=== PATIENT | female | born 1935 | race Caucasian/White ===

== ENCOUNTER 2020-08-25 18:23 | Emergency (ER) | payer MEDICARE, OTHER, MEDICAID, SELFPAY ==
[2020-08-25 18:24] VITALS: BP 157/87; PULSE 79; RESP 18; TEMP 36.7; O2SAT 96; BMI 26.1; BMI 26.6
--- NOTE | 2020-08-25 18:25 | CT_ITS ---
PROCEDURE: CT HEAD/BRAIN WO CON CLINICAL INDICATION: fall Head injury with headache/pain, contusion, abrasion or hematoma COMPARISON: No exams were available for comparison TECHNIQUE: Axial images obtained. All CT scans at the facility use one or more dose reduction, viz: automated exposure control, ma/kV adjustment per patient size (including targeted exams where dose is matched to indication, i.e. head), or iterative reconstruction technique. FINDINGS: There is generalized atrophy with hypodensity in the periventricular consistent with periventricular ischemic gliotic changes. A 2.3 x 1.8 cm hyperattenuating mass is present within the posterior aspect of the left corpus callosum/medial parietal occipital region which appears to be and intra axial mass causing mild mass effect on the posterior left lateral ventricle. No intracranial hemorrhage. No midline shift. There is a displaced nasal bone fracture and soft tissue swelling in the left frontal region. IMPRESSION: 1. No acute intracranial hemorrhage. 2. 2.3 x 1.8 cm hyperattenuating mass within the posterior left/splenium of the corpus callosum. Suggest MRI without and with contrast for further evaluation. Differential diagnosis includes primary neoplasm of the brain, metastatic disease, or lymphoma. 3. Left frontal scalp contusion. 4. Displaced nasal bone fracture Dictated by: Guru Thomas MD 08/26/2020 07:04 Guru Thomas MD in [facility] 08/26/2020 07:04
--- NOTE | 2020-08-25 18:25 | CT_ITS ---
PROCEDURE: CT CERVICAL SPINE WO CON CLINICAL INDICATION: fall Neck injury with pain, contusion/abrasion or hematoma, cervical sprain/strain the COMPARISON: No exams were available for comparison TECHNIQUE: Axial images obtained with sagittal and coronal reformats. All CT scans at the facility use one or more dose reduction, viz: automated exposure control, ma/kV adjustment per patient size (including targeted exams where dose is matched to indication, i.e. head), or iterative reconstruction technique. Axial spiral CT scanning performed of the cervical spine beginning at the base of the skull and continuing to the upper T-spine. 3-D multiplanar reconstruction with 3-D manipulation of volumetric data set in image rendering was completed by the radiologist and/or technologist with the supervision of the radiologist on independent workstation. FINDINGS: Normal alignment. No acute fracture or dislocation. Multilevel cervical spondylosis. C2-C3: Degenerative disc disease. C3-C4: Degenerative disc disease with bilateral foraminal narrowing from facet hypertrophic change. C4-C5: Degenerative disc disease. 3 mm anterolisthesis of C4. Bilateral foraminal narrowing. Canal stenosis at 10 mm. C5-C6: Degenerative disc disease with endplate hypertrophic changes. There is canal stenosis at 10 mm with bilateral foraminal narrowing right greater than left. C6-C7: Degenerate disc disease with right-sided foraminal narrowing. C7-T1: Degenerative disc disease with 3 mm anterolisthesis of C7. Please see facial CT and head CT for additional findings. IMPRESSION: 1. No acute fracture. 2. Multilevel cervical spondylosis with canal stenosis and foraminal narrowing. Please see above for detailed description at each level. 3. Additional findings noted in the face and brain including nasal bone fracture and hyperdense nodule within the left aspect of the corpus callosum described on the CT facial and brain report. Dictated by: Guru Thomas MD 08/26/2020 07:14 Guru Thomas MD in [facility] 08/26/2020 07:14
--- NOTE | 2020-08-25 18:25 | CT_ITS ---
PROCEDURE: CT FACIAL BONES WO CON CLINICAL HISTORY: fall Posttraumatic pain COMPARISON: No exams were available for comparison TECHNIQUE: Axial images obtained with sagittal and coronal reformats. All CT scans at the facility use one or more dose reduction, viz: automated exposure control, ma/kV adjustment per patient size (including targeted exams where dose is matched to indication, i.e. head), or iterative reconstruction technique. FINDINGS: There is soft tissue swelling in the left frontal region. There is an impacted comminuted nasal bone fracture with rightward angulation the anterior fracture fragments. Nasal septal fracture is also noted having a crinkled appearance. No obvious orbital fracture. There is an air-fluid level in the maxillary sinuses on both sides.. Air-fluid level is also present in the sphenoid sinus. Soft tissue swelling is present in the nasal region. Degenerative changes are present in the TMJs. IMPRESSION: 1. Comminuted displaced and mildly impacted nasal bone fracture with soft tissue swelling. 2. Comminuted nasal septal fracture. There is 4 mm lateral displacement of the anterior fracture fragment. 3. Air-fluid levels within the paranasal sinuses which may be posttraumatic or infectious 4. Left frontal scalp hematoma Dictated by: Guru Thomas MD 08/26/2020 07:11 Guru Thomas MD in [facility] 08/26/2020 07:11
[2020-08-25 18:28] VITALS: BP 170/74; PULSE 76; RESP 12; O2SAT 97
--- NOTE | 2020-08-25 18:29 | [facility].EDGENADL ---
ED Disposition Clinical Impression: Nasal bone fracture Qualifiers: Encounter type: initial encounter Fracture type: closed Qualified Code(s): S02.2XXA - Fracture of nasal bones, initial encounter for closed fracture Disposition: Home, Self-Care Condition on Discharge: Good Instructions: How to Prevent Falls Additional Instructions: Use ice to nasal bridge and avoid nose blowing over the next 6 to 10 days prior to following up with ENT surgery for further treatment of nasal bone fracture. Return if any difficulty following up with ENT or new symptoms. Referrals: Anshu Medellin [Primary Care Provider] - Kei Betancourt MD [Staff Physician] - 7-14 days (6-10 days for nasal bone fracture) - Critical Care Critical Care Time: No Attestation: On , the high probability of a clinically significant, sudden or life threatening deterioration of the following system(s) required my full and direct attention, intervention and personal management. The time I documented below is in addition to time spent performing reported procedures but includes the following listed in this critical care notation. Medical Decision Making - Medical Records Medical records reviewed: Yes: I reviewed the patient's medical records. - Jeff Inquiry Pt receiving controlled substance: No Vital Signs: 08/25/20 18:24 08/25/20 18:28 08/25/20 20:50 Temperature 98.1 F 98.1 F Temperature Source Oral Pulse Rate 76 74 Pulse Rate [Right Radial] 79 Respiratory Rate 18 12 18 Blood Pressure 170/74 H 162/76 H Blood Pressure [Right Arm] 157/87 H Blood Pressure Mean [Right Arm] 110 Blood Pressure Source [Right Arm] Automatic Cuff Blood Pressure Position Supine Blood Pressure Position [Right Arm] Supine 02 Sat by Pulse Oximetry 96 97 Oxygen Delivery Method Room Air Room Air - Lab Data Lab Results 08/25/20 19:20: WBC 9.6, RBC 5.10, Hgb 12.5, Hct 39.1, MCV 76.6 L, MCH 24.5 L, MCHC 32.0, RDW 16.3, Plt Count 151, MPV 8.2, Neut % (Auto) 84.4 H, Lymph % (Auto) 9.3 L, [place] % (Auto) 4.0, Eos % (Auto) 1.9, Baso % (Auto) 0.3, Neut # (Auto) 8.1 H, Lymph # (Auto) 0.9, [place] # (Auto) 0.4, Eos # (Auto) 0.2, Baso # (Auto) 0.0 08/25/20 19:20: Sodium 142, Potassium 4.2, Chloride 104, Carbon Dioxide 30, Anion Gap 12.2, BUN 27 H, Creatinine 1.20 H, Estimated Creat Clear 38, Estimated GFR 43 L, Est GFR ( Amer) 52 L, Glucose 173 H, Calcium 10.2, Total Bilirubin 0.5, AST 32, ALT 18, Alkaline Phosphatase 107, Troponin I 0.02, Total Protein 7.2, Albumin 4.5, Globulin 2.7, Albumin/Globulin Ratio 1.7 Result diagrams: 08/25/20 19:20 08/25/20 19:20 Orders (Tests/Meds): ED MEDICATIONS Discontinued Medications Generic Name Dose Route Start Last Admin Trade Name Freq PRN Reason Stop Dose Admin Sodium Chloride 1,000 mls @ 999 mls/hr 08/25/20 19:30 08/25/20 19:30 Sod Chlor 0.9% 1000ml Bag IV 08/25/20 20:30 999 mls/hr .Q1H1M TIM Administration Medical Decision Narrative: Patient presents after unwitnessed fall. Unclear whether the fall was mechanical versus syncopal in nature. CT imaging of head, neck, and face will be obtained to ensure no facial bone fracture, cervical spine fracture or subluxation, acute ICH/skull fracture. Basic labs will also be obtained to ensure no anemia or metabolic disturbance as well as a cardiac work-up including EKG and cardiac enzyme testing. Labs nonactionable. CTs demonstrate appears to be a nasal bone fracture. No septal hematoma or difficulty breathing noted. Bleeding has stopped. She has a left scalp hematoma without other acute intracranial abnormalities or cervical spine fracture or subluxation. She does have what could be a mass/neoplasm left corpus callosum requiring follow-up imaging in the outpatient setting. I do not believe is secondary to patient's complaints today. She does need to follow-up with ENT in 6 to 10 days and avoid nose blowing in that time. I did share this plan with patient a
--- NOTE | 2020-08-25 18:54 | XR_ITS ---
PROCEDURE: XR CHEST PORTABLE CLINICAL HISTORY: fall Posttraumatic COMPARISON: No exams were available for comparison FINDINGS: The cardiomediastinal silhouette and pulmonary vascularity are within normal limits. The lungs are clear without infiltrates, suspicious nodules, or pleural effusions. Degenerative changes of the shoulders. Mild thoracic curvature convex right. IMPRESSION: No acute findings. Dictated by: Guru Thomas MD 08/25/2020 19:18 Guru Thomas MD in [place] 08/25/2020 19:18
[2020-08-25 19:33] LABS: Basophils % 0.3 % (0.1-2.0); Eosinophils # 0.2 K/mm3 (0.0-0.4); Eosinophils % 1.9 % (0.1-12.0); Hematocrit 39.1 % (37.0-47.0); Hemoglobin 12.5 g/dL (12.2-16.2); Lymphocytes # 0.9 K/mm3 (0.7-4.5); Lymphocytes % 9.3 % (10-50); Mean Corpuscular Hemoglobin 24.5 pg (27.0-31.2); Mean Corpuscular Volume 76.6 fl (81-99); Mean Platelet Volume 8.2 fl (7.4-10.4); Monocytes # 0.4 K/mm3 (0.1-1.0); Neutrophils # 8.1 K/mm3 (1.8-7.8); Neutrophils % 84.4 % (37.0-80.0); Platelet Count 151 K/mm3 (142-424); Red Cell Distribution Width 16.3 % (11.5-17.5); White Blood Count 9.6 K/mm3 (4.8-10.8)
[2020-08-25 19:39] LABS: Chloride 104 mmol/L (98-107); Potassium 4.2 mmoL/L (3.5-5.1); Sodium 142 mmol/L (136-145)
[2020-08-25 19:42] LABS: Alanine Aminotransferase 18 U/L (12-78); Albumin Level 4.5 g/dl (3.5-5.0); Albumin/Globulin Ratio 1.7 (1.1-1.8); Alkaline Phosphatase 107 U/L (38-126); Anion Gap 12.2 mEq/L (5-15); Aspartate Amino Transferase 32 U/L (14-36); Bilirubin,Total 0.5 mg/dl (0.2-1.3); Blood Urea Nitrogen 27 mg/dl (7-17); Calcium 10.2 mg/dl (8.4-10.2); Carbon Dioxide 30 mmol/L (22.0-30.0); Creatinine Clearance Estimated 38 mL/min (50-200); Estimated Glomerular Filt Rate 43 ml/min (>60); GFR (African American) 52 ML/MIN (>60); Globulin 2.7 g/dL (1.3-3.2); Glucose 173 mg/dl (74-100); Total Protein,Serum 7.2 g/dl (6.3-8.2)
[2020-08-25 19:53] LABS: Troponin I 0.02 ng/ml (0.00-0.034)
[2020-08-25 20:50] VITALS: BP 162/76; PULSE 74; RESP 18; TEMP 36.7; O2SAT 96
== END 2020-08-25 20:57 | disposition home or self-care (01) ==
PROVIDERS: Emergency Provider Emergency Medicine; PCP Family Medicine
DX: S02.2XXA Fracture of nasal bones, initial encounter for closed fracture (principal); W18.00XA Striking against unspecified object with subsequent fall, initial encounter; Y92.129 Unspecified place in nursing home as the place of occurrence of the external cause; Z88.0 Allergy status to penicillin
CPT/HCPCS: 70450; 70486; 71045; 72125; 80053; 84484; 85025; 96365; 99283

== ENCOUNTER 2022-03-02 08:14 | Outpatient (CLI) | payer MEDICARE, MEDICAID, OTHER, SELFPAY ==
[2022-03-02] VITALS (19 sets, daily range): BP systolic 96–155; BP diastolic 27–79; PULSE 71–81; RESP 18–21; TEMP 36.1–36.6; O2SAT 94–99; BMI 29.4
[2022-03-02 09:43] LABS: Ferritin 6.76 ng/ml (11.1-264)
[2022-03-02 16:09] LABS: Hematocrit 29.9 % (37.0-47.0); Hemoglobin 9.2 g/dL (12.2-16.2)
== END 2022-03-02 16:39 | disposition home or self-care (01) ==
PROVIDERS: PCP Family Medicine; Visit Provider Family Medicine
DX: D64.9 Anemia, unspecified (principal)
CPT/HCPCS: 36430; 82728; 85014; 85018; 86850; P9016

== ENCOUNTER 2022-05-21 08:03 | Outpatient (CLI) | payer MEDICARE, OTHER, MEDICAID, SELFPAY ==
[2022-05-21] VITALS (20 sets, daily range): BP systolic 110–158; BP diastolic 50–66; PULSE 61–78; RESP 20–21; TEMP 35.9–36.2; O2SAT 98–99; BMI 28.4
[2022-05-21 10:54] LABS: Hematocrit 26.5 % (37.0-47.0); Hemoglobin 7.9 g/dL (12.2-16.2)
== END 2022-05-21 16:45 | disposition home or self-care (01) ==
LOC: INF 08:05
PROVIDERS: PCP Family Medicine; Visit Provider Family Medicine
DX: D64.9 Anemia, unspecified (principal)
CPT/HCPCS: 36430; 85014; 85018; 86850; P9016

== ENCOUNTER 2023-09-07 14:40 | Emergency (ER) | payer MEDICARE, OTHER, MEDICAID, SELFPAY ==
[2023-09-07 14:47] VITALS: BP 152/49; PULSE 70; RESP 20; TEMP 36.8; O2SAT 95; BMI 27.4
--- NOTE | 2023-09-07 14:49 | ED_ITS ---
Discharge Plan Disposition Patient Disposition: Xfer [facility] Condition: Good Prescriptions Prescriptions: No Action multivitamin Tablet 1 tab PO DAILY donepezil 5 mg tablet 5 mg PO DAILY sertraline [Zoloft] 100 mg Tablet 100 mg PO DAILY amlodipine 10 mg tablet 10 mg PO DAILY pantoprazole [Protonix] 40 mg Tablet,Delayed Release (Dr/Ec) 40 mg PO DAILY gabapentin 300 mg Capsule 300 mg PO BID aspirin 81 mg Tablet 81 mg PO DAILY hydrochlorothiazide 25 mg tablet 25 mg PO DAILY furosemide 20 mg tablet 40 mg PO DAILY potassium chloride 20 mEq Tablet Extended Release 20 meq PO DAILY Activity Restrictions/Add. Instructions Additional Instructions/Restrictions: May take Tylenol alternating with Motrin as needed for pain for her hematomas. Return to emergency department for any change in level of consciousness, persistent headache, intractable nausea vomiting etc. as needed Clinical Impressions Clinical Impression: Fall, Hematoma Discharge ED Provider: Zen Kapoor General Adult HPI <GABE Lee - Last Filed: 09/07/23 16:19> General Chief complaint: Fall Stated complaint: Fall Time Seen by Provider: 09/07/23 14:49 History of Present Illness HPI narrative: She presents for evaluation after an unwitnessed fall. Patient herself states that she bent over to picking tech a piece of paper on the floor to thrown to the trash can and tripped over some wires and fell forward striking her forehead. Patient denies loss of consciousness. She has no complaints currently including no numbness no tingling chest pain shortness of breath fever chills hemoptysis hematochezia melena nausea vomiting diarrhea headache. Related Data Home Medications Medication Instructions Recorded Confirmed amlodipine 10 mg tablet 10 mg PO DAILY High blood pressure 03/02/22 03/02/22 aspirin 81 mg tablet 81 mg PO DAILY Blood thinner 03/02/22 03/02/22 donepezil 5 mg tablet 5 mg PO DAILY dementia 03/02/22 03/02/22 furosemide 20 mg tablet 40 mg PO DAILY Edema 03/02/22 03/02/22 gabapentin 300 mg capsule 300 mg PO BID pain 03/02/22 03/02/22 hydrochlorothiazide 25 mg tablet 25 mg PO DAILY High blood pressure 03/02/22 03/02/22 multivitamin 1 tab PO DAILY Diet supplement 03/02/22 03/02/22 pantoprazole 40 mg tablet,delayed 40 mg PO DAILY GERD 03/02/22 03/02/22 release (Protonix) potassium chloride 20 mEq 20 meq PO DAILY Diet supplement 03/02/22 03/02/22 tablet,extended release sertraline 100 mg tablet (Zoloft) 100 mg PO DAILY Depression 03/02/22 03/02/22 Allergies Allergy/AdvReac Type Severity Reaction Status Date / Time dexamethasone Allergy Verified 09/04/20 15:49 ofloxacin [From Floxin] Allergy Verified 09/04/20 15:49 Penicillins Allergy Verified 09/04/20 15:49 prednisone Allergy Verified 09/04/20 15:49 PFSH <GABE Lee - Last Filed: 09/07/23 16:19> [facility] Disclaimer: The information contained in this section may have been updated after the patient was seen, as this information can be updated by other users. 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 Essential hypertension Major depressive disorder, single episode, unspecified Vascular dementia, unspecified severity, without behavioral disturbance, psychotic disturbance, mood disturbance, and anxiety Hyperlipidemia Recurrent dislocation, right hip Hx of falling History of COVID-19 Aphasia Flaccid hemiplegia affecting unspecified side Malnutrition Surgical History Presence of right artificial hip joint Family History Other Family history non-contributory Social History Smoking Status: Never smoker alcohol intake: never current occupational status: retired Travel in the last 8 weeks: Inside the [place] housing: [facility] marital status: civil union <GABE Lee - Last Filed: 09/07/23 16:19> ROS Obtained: Yes Systems reviewed as appropriate & no additional complaints except as documented Physical Exam <GABE Lee - Last Filed: 09/07/23 16:19> General General appearance: alert and in no apparent distress Head Head exam: other (Patient has a hematoma at the right lateral orbit and upper midline forehead. No deformities or skin breaks noted on exam.) Eye Eye exam: Present normal appearance, PERRL and EOMI ENT ENT exam: Present normal exam and normal oropharynx Neck Neck exam: Present normal inspection, full ROM and trachea midline; Absent tenderness Chest Chest inspection: Present normal inspection and symmetric chest wall rise Respiratory Respiratory exam: Present normal lung sounds bilaterally Cardiovascular Cardiovascular exam: Present regular rate and normal rhythm Abdominal Exam Abdominal exam: Present soft and normal bowel sounds; Absent tenderness Extremities Exam Extremities exam: Present normal inspection and full ROM; Absent tenderness Back Exam Back exam: Present normal inspection and full ROM; Absent tenderness Neurological Exam Neurological exam: Present alert, oriented X3, CN II-XII intact and other (Patient apparently has baseline confusion however she seems appropriate and is answering questions appropriately and right now Glascow coma score is 15 at the time of my exam) Psychiatric Psychiatric exam: Present normal affect and normal mood Skin Skin exam: Present warm, dry and normal color Medical Decision Making <GABE Lee - Last Filed: 09/07/23 16:19> Medical Records Medical records reviewed: Yes I reviewed the patient's medical records. Jeff Inquiry Pt receiving controlled substance: No Vital Signs: 09/07/23 14:47 09/07/23 15:00 09/07/23 15:30 Temperature 98.3 F Temperature Source Oral Pulse Rate 67 65 Pulse Rate [Left Radial] 70 Respiratory Rate 20 Blood Pressure 150/65 H 149/61 H Blood Pressure [Right Arm] 152/49 H Blood Pressure Mean [Right Arm] 83 02 Sat by Pulse Oximetry 95 95 96 Oxygen Delivery Method Room Air 09/07/23 16:01 09/07/23 16:30 09/07/23 17:00 Temperature 98.3 F Temperature Source Oral Pulse Rate 66 69 64 Pulse Rate [Left Radial] Respiratory Rate 20 Blood Pressure 149/64 H 138/58 L 138/53 L Blood Pressure [Right Arm] Blood Pressure Mean [Right Arm] 02 Sat by Pulse Oximetry 97 96 Oxygen Delivery Method Room Air Lab Data Lab results reviewed: Yes I reviewed the patient's lab results. Lab Results 09/07/23 14:53: WBC 7.7, RBC 4.87, Hgb 10.1 L, Hct 32.6 L, MCV 67.0 L, MCH 20.8 L, MCHC 31.0 L, RDW 17.9 H, Plt Count 192, MPV 8.9, Neut % (Auto) 69.0, Lymph % (Auto) 22.0, [place] % (Auto) 6.0, Eos % (Auto) 2.8, Baso % (Auto) 0.3, Neut # (Auto) 5.3, Lymph # (Auto) 1.7, [place] # (Auto) 0.5, Eos # (Auto) 0.2, Baso # (Auto) 0.0, PT 11.4, INR 1.06, Sodium 142, Potassium 3.6, Chloride 102, Carbon Dioxide 31 H, Anion Gap 12.6, BUN 42 H, Creatinine 1.40 H, Estimated Creat Clear 31, Estimated GFR 35 L, Est GFR ( Amer) 43 L, Glucose 125 H, Calcium 9.7, Troponin I 0.02 09/07/23 14:53 09/07/23 14:53 Orders (Tests/Meds): ORDERS Category Date Time Status CT cervical spine wo con Stat Cat Scan 09/07/23 14:[address] head/brain wo con Stat Cat Scan 09/07/23 14:53 Completed BMP [Basic Metabolic Panel] Stat Lab 09/07/23 14:53 Completed CBC w/Auto Diff [Complete Blood Count Auto Diff] Stat Lab 09/07/23 14:53 Completed INR [Prothrombin Time INR] Stat Lab 09/07/23 14:53 Completed Trop I [Troponin I] Stat Lab 09/07/23 14:53 Completed Medical Decision Narrative: In summary patient is a 88-year-old female who presents to the emergency department for evaluation of witnessed fall. Patient is dynamically stable upon arrival, afebrile. Physical exam is remarkable for hematoma at the right lateral aspect of the right orbit and in the midline upper forehead. No focal neurologic deficit patient moves all 4 extremities with good muscle strength. GCS is 15 at the moment. No tenderness of the C-spine or T-spine on exam.. Differential diagnosis includes contusion versus fracture versus head bleed versus ACS etc. Initial workup will be conducted with hematologic labs CT scan of the head and C-spine twelve-lead EKG. Initial interventions include Toradol Tylenol. Initial workup reviewed by me and her imaging shows no acute fracture and a known 2.5 cm meningioma. Upon repeat evaluation patient remains neurologically intact with a GCS of 15. Given this appropriate for discharge home with head injury precautions. Symptomatic treatment for hematoma with Tylenol Motrin as needed. Antwon: I assumed primary responsibility for this patient after signout from previous physician. EKG independently interpreted and significant for sinus rhythm 69 beats a minute with T wave inversions in lateral leads. Also nondiagnostic biphasic T waves in lead II. No ST deviations. <Zen Kapoor MD - Last Filed: 09/07/23 20:26> Vital Signs: 09/07/23 14:47 09/07/23 15:00 09/07/23 15:30 Temperature 98.3 F Temperature Source Oral Pulse Rate 67 65 Pulse Rate [Left Radial] 70 Respiratory Rate 20 Blood Pressure 150/65 H 149/61 H Blood Pressure [Right Arm] 152/49 H Blood Pressure Mean [Right Arm] 83 02 Sat by Pulse Oximetry 95 95 96 Oxygen Delivery Method Room Air 09/07/23 16:01 09/07/23 16:30 09/07/23 17:00 Temperature 98.3 F Temperature Source Oral Pulse Rate 66 69 64 Pulse Rate [Left Radial] Respiratory Rate 20 Blood Pressure 149/64 H 138/58 L 138/53 L Blood Pressure [Right Arm] Blood Pressure Mean [Right Arm] 02 Sat by Pulse Oximetry 97 96 Oxygen Delivery Method Room Air Lab Data Lab Results 09/07/23 14:53: WBC 7.7, RBC 4.87, Hgb 10.1 L, Hct 32.6 L, MCV 67.0 L, MCH 20.8 L, MCHC 31.0 L, RDW 17.9 H, Plt Count 192, MPV 8.9, Neut % (Auto) 69.0, Lymph % (Auto) 22.0, [place] % (Auto) 6.0, Eos % (Auto) 2.8, Baso % (Auto) 0.3, Neut # (Auto) 5.3, Lymph # (Auto) 1.7, [place] # (Auto) 0.5, Eos # (Auto) 0.2, Baso # (Auto) 0.0, PT 11.4, INR 1.06, Sodium 142, Potassium 3.6, Chloride 102, Carbon Dioxide 31 H, Anion Gap 12.6, BUN 42 H, Creatinine 1.40 H, Estimated Creat Clear 31, Estimated GFR 35 L, Est GFR ( Amer) 43 L, Glucose 125 H, Calcium 9.7, Troponin I 0.02 Orders (Tests/Meds): ORDERS Category Date Time Status CT cervical spine wo con Stat Cat Scan 09/07/23 14:[address] head/brain wo con Stat Cat Scan 09/07/23 14:53 Completed BMP [Basic Metabolic Panel] Stat Lab 09/07/23 14:53 Completed CBC w/Auto Diff [Complete Blood Count Auto Diff] Stat Lab 09/07/23 14:53 Completed INR [Prothrombin Time INR] Stat Lab 09/07/23 14:53 Completed Trop I [Troponin I] Stat Lab 09/07/23 14:53 Completed Medical Decision Narrative: In summary patient is a 88-year-old female who presents to the emergency department for evaluation of witnessed fall. Patient is dynamically stable upon arrival, afebrile. Physical exam is remarkable for hematoma at the right lateral aspect of the right orbit and in the midline upper forehead. No focal neurologic deficit patient moves all 4 extremities with good muscle strength. GCS is 15 at the moment. No tenderness of the C-spine or T-spine on exam.. Differential diagnosis includes contusion versus fracture versus head bleed versus ACS etc. Initial workup will be conducted with hematologic labs CT scan of the head and C-spine twelve-lead EKG. Initial interventions include Toradol Tylenol. Initial workup reviewed by me and her imaging shows no acute fracture and a known 2.5 cm meningioma. Upon repeat evaluation patient remains neurologically intact with a GCS of 15. Given this appropriate for discharge home with head injury precautions. Symptomatic treatment for hematoma with Tylenol Motrin as needed. Antwon: I assumed primary responsibility for this patient after signout from previous physician. EKG independently interpreted and significant for sinus rhythm 69 beats a minute with T wave inversions in lateral leads. Also nondiagnostic biphasic T waves in lead II. No ST deviations. Because patient at baseline without signs or symptoms of clinical decompensation, deemed appropriate for discharge. Results were relayed to patient who voiced understanding and were agreeable to outpatient management and follow up. I discussed my clinical impression with patient and answered all questions. At this time, the evidence for any other entities in the differential is insufficient to warrant any further testing or ED observation. This was explained as well. Advisory was given that persistent or worsening symptoms require further evaluation. I confirmed the understanding of this discussion. I was consulted by the PATRICIA, and we discussed the complexity of the problems being addressed. I approved the treatment and management plan for this patient?s care in the Emergency Department, thus performing a substantive portion of the medical decision making. Zen Kapoor MD Critical Care <GABE Lee - Last Filed: 09/07/23 16:19> Critical Care Time Critical Care Time: No
--- NOTE | 2023-09-07 14:53 | CT_ITS ---
PROCEDURE INFORMATION: Exam: CT Head Without Contrast Exam date and time: 09/07/2023 3:57 PM Age: 88 years old Clinical indication: Injury or trauma; Fall; Additional info: Fall/trauma TECHNIQUE: Imaging protocol: Computed tomography of the head without contrast. Radiation optimization: All CT scans at this facility use at least one of these dose optimization techniques: automated exposure control; mA and/or kV adjustment per patient size (includes targeted exams where dose is matched to clinical indication); or iterative reconstruction. COMPARISON: 1. CT HEAD/BRAIN WO CON 08/25/2020 6:[address] FACIAL BONES WO CON 08/25/2020 6:[address] CERVICAL SPINE WO CON 09/07/2023 3:57 PM FINDINGS: Brain: Increasing calcification associated with a 2.5 cm left parafalcine lesion (image 34 series 3), favored to reflect meningioma. Impression. The brain parenchyma appears unremarkable, with no signs of acute intracranial hemorrhage or significant mass effect. There is hypodensity in the subcortical and periventricular white matter which is technically nonspecific but most often related to chronic microvascular disease. Cerebral ventricles: Mild ventricular enlargement consistent with age-related cerebral atrophy is noted. Paranasal sinuses: Paranasal sinuses show age-appropriate mucosal thickening. Mastoid air cells: Visualized mastoid air cells are well aerated. Bones: There are no skull fractures or bony lesions. Soft tissues: Soft tissue swelling over the right lateral orbital ridge. IMPRESSION: 1. Soft tissue swelling over the right lateral orbital ridge. 2. Presumably age-related and chronic changes without acute intracranial abnormality.
--- NOTE | 2023-09-07 14:53 | CT_ITS ---
PROCEDURE INFORMATION: Exam: CT Cervical Spine Without Contrast Exam date and time: 09/07/2023 3:57 PM Age: 88 years old Clinical indication: Injury or trauma; Fall; Additional info: Fall/trauma TECHNIQUE: Imaging protocol: Computed tomography of the cervical spine without contrast. Radiation optimization: All CT scans at this facility use at least one of these dose optimization techniques: automated exposure control; mA and/or kV adjustment per patient size (includes targeted exams where dose is matched to clinical indication); or iterative reconstruction. COMPARISON: 1. CT CERVICAL SPINE WO CON 08/25/2020 6:[address] HEAD/BRAIN WO CON 09/07/2023 3:[address] HEAD/BRAIN WO CON 08/25/2020 6:46 PM FINDINGS: Bones: There is diffuse osseous demineralization. The cervical spine shows relatively preserved alignment of the vertebral bodies with no evidence of acute fractures or dislocations. However, age-related degenerative changes are observed, including mild disc space narrowing and osteophyte formation at multiple levels. These findings are consistent with age related degenerative disease. Lungs: Lung apices are normal. Vasculature: There are atherosclerotic calcifications of the carotid bulbs bilaterally. Soft tissues: Unremarkable. IMPRESSION: Multilevel degenerative change without acute injury identified.
[2023-09-07 15:00] VITALS: BP 150/65; PULSE 67; O2SAT 95
[2023-09-07 15:03] LABS: Basophils % 0.3 % (0.1-2.0); Eosinophils # 0.2 K/mm3 (0.0-0.4); Eosinophils % 2.8 % (0.1-12.0); Hematocrit 32.6 % (37.0-47.0); Hemoglobin 10.1 g/dL (12.2-16.2); Lymphocytes # 1.7 K/mm3 (0.7-4.5); Mean Corpuscular Hemoglobin 20.8 pg (27.0-31.2); Mean Platelet Volume 8.9 fl (7.4-10.4); Monocytes # 0.5 K/mm3 (0.1-1.0); Neutrophils # 5.3 K/mm3 (1.8-7.8); Platelet Count 192 K/mm3 (142-424); Red Blood Count 4.87 M/mm3 (4.20-5.40); Red Cell Distribution Width 17.9 % (11.5-17.5); White Blood Count 7.7 K/mm3 (4.8-10.8)
[2023-09-07 15:12] LABS: INR 1.06 (0.9-1.1); Prothrombin Time 11.4 seconds (10.1-12.5)
[2023-09-07 15:15] LABS: Anion Gap 12.6 mEq/L (5-15); Blood Urea Nitrogen 42 mg/dl (7-17); Calcium 9.7 mg/dl (8.4-10.2); Carbon Dioxide 31 mmol/L (22.0-30.0); Chloride 102 mmol/L (98-107); Creatinine Clearance Estimated 31 mL/min (50-200); Estimated Glomerular Filt Rate 35 ml/min (>60); GFR (African American) 43 ML/MIN (>60); Glucose 125 mg/dl (74-100); Potassium 3.6 mmoL/L (3.5-5.1); Sodium 142 mmol/L (136-145)
--- NOTE | 2023-09-07 15:18 | ECG_ITS ---
APPROVED REPORT Exam: Resting ECG HR:69 bpm ECG Measurements Heart Rate 69 AXES NH 148 P 72 QRSd 109 QRS -37 QT 448 T 171 QTc 468 Conclusion SINUS RHYTHM LEFT VENTRICULAR HYPERTROPHY AND ST-T CHANGE Electronically signed by : ROHAN MILLER, 09/08/2023 14:57:15
[2023-09-07 15:27] LABS: Troponin I 0.02 ng/ml (0.00-0.034)
[2023-09-07 15:30] VITALS: BP 149/61; PULSE 65; O2SAT 96
[2023-09-07 16:01] VITALS: BP 149/64; PULSE 66; O2SAT 97
--- NOTE | 2023-09-07 16:27 | PC.NURSE ---
REPORT CALLED TO RAÚL AT [facility] AT [facility] NOTIFIED OF TRANSFER BACK TO [facility]
[2023-09-07 16:30] VITALS: BP 138/58; PULSE 69; O2SAT 96
[2023-09-07 17:00] VITALS: BP 138/53; PULSE 64; RESP 20; TEMP 36.8; O2SAT 97
== END 2023-09-07 17:01 ==
PROVIDERS: Physician Assistant; Emergency Provider Emergency Medicine
DX: S00.83XA Contusion of other part of head, initial encounter (principal); W18.39XA Other fall on same level, initial encounter; I11.0 Hypertensive heart disease with heart failure; I50.9 Heart failure, unspecified; E78.5 Hyperlipidemia, unspecified; F01.50 Vascular dementia, unspecified severity, without behavioral disturbance, psychotic disturbance, mood disturbance, and anxiety
CPT/HCPCS: 70450; 72125; 80048; 84484; 85025; 85610; 93005; 99285

== ENCOUNTER 2023-11-28 07:21 | Emergency (ER) | payer MEDICARE, OTHER, MEDICAID, SELFPAY ==
[2023-11-28 07:23] VITALS: BP 132/63; PULSE 62; RESP 16; TEMP 36.4; O2SAT 97; BMI 25.6
[2023-11-28 07:31] VITALS: BP 140/56; PULSE 73; O2SAT 95
--- NOTE | 2023-11-28 07:32 | XR_ITS ---
FINAL REPORT CLINICAL HISTORY: fall, injury FINDINGS: SINGLE VIEW PELVIS: A single view of the pelvis was obtained. The patient is status post right hip arthroplasty. The bones are osteopenic. There is no acute fracture or dislocation. Vizualized joint spaces are normally aligned. Soft tissues are unremarkable. IMPRESSION: No acute bony abnormality. Reviewed, Interpreted and Dictated by Hilario Randolph MD Transcribed by Abbey Clark Authenticated and [facility]
--- NOTE | 2023-11-28 07:32 | CT_ITS ---
FINAL REPORT TECHNIQUE: Thin section axial CT with sagittal reconstruction without contrast CLINICAL HISTORY: fall, injury COMPARISON: 09/07/2023 FINDINGS: Minimally displaced fracture of the anterior inferior corner of the C2 vertebral body. Alignment is normal. No obvious bony spinal canal stenosis is present. There is moderate facet arthropathy and diffuse degenerative disease. IMPRESSION: Mildly displaced fracture of the anterior inferior corner of the C2 vertebral body. Donna Morales RN was notified of these findings at 8:36 AM on 11/28/2023 Reviewed, Interpreted and Dictated by Hilario Randolph MD Transcribed by Abbey Clark Authenticated and [facility]
--- NOTE | 2023-11-28 07:32 | CT_ITS ---
FINAL REPORT TECHNIQUE: Thin section axial CT with coronal reconstruction without IV contrast CLINICAL HISTORY: fall, injury FINDINGS: There are comminuted bilateral nasal bone fractures with depression and displacement to the right. The anterior nasal septum is fractured. The orbits are intact. Paranasal sinuses are clear. The TMJs are intact. IMPRESSION: Comminuted nasal bone fractures as above. No evidence of left orbital fracture. Reviewed, Interpreted and Dictated by Hilario Randolph MD Transcribed by Abbey Clark Authenticated and [facility]
--- NOTE | 2023-11-28 07:32 | XR_ITS ---
FINAL REPORT CLINICAL HISTORY: fall, injury FINDINGS: No acute pulmonary opacity is present. There is no evidence of effusion or pneumothorax. Mediastinum is unremarkable. Heart size is normal. IMPRESSION: No acute abnormality. Reviewed, Interpreted and Dictated by Hilario Randolph MD Transcribed by Abbey Clark Authenticated and [facility]
--- NOTE | 2023-11-28 07:32 | CT_ITS ---
FINAL REPORT CLINICAL HISTORY: fall, injury COMPARISON: 09/07/2023, 08/25/2020 FINDINGS: Moderate atrophy and chronic ischemic white matter changes are noted. No cortical edema is present. There is no hemorrhage. There is a partially calcified mass in the left parafalcine region measuring 19 mm. This previously measured 25 mm in 2020. Ventricles are normal. Bone windows show no skull fracture or obvious obstructive lesion. Left periorbital and frontal scalp hematoma. IMPRESSION: 1. Left frontal and periorbital soft tissue hematoma. 2. No acute intracranial abnormality. 3. Atrophy and chronic ischemic white matter changes as above. Reviewed, Interpreted and Dictated by Hilario Randolph MD Transcribed by Abbey Clark Authenticated and [facility]
--- NOTE | 2023-11-28 07:51 | PC.NURSE ---
pt gone with Rad to CT
--- NOTE | 2023-11-28 07:56 | ED_ITS ---
Discharge Plan Disposition Patient Disposition: Xfer Short-Term Hosp Condition: Good Prescriptions Prescriptions: No Action multivitamin Tablet 1 tab PO DAILY donepezil 5 mg tablet 5 mg PO DAILY sertraline [Zoloft] 100 mg Tablet 100 mg PO DAILY amlodipine 10 mg tablet 10 mg PO DAILY pantoprazole [Protonix] 40 mg Tablet,Delayed Release (Dr/Ec) 40 mg PO DAILY gabapentin 300 mg Capsule 300 mg PO BID aspirin 81 mg Tablet 81 mg PO DAILY hydrochlorothiazide 25 mg tablet 25 mg PO DAILY furosemide 20 mg tablet 40 mg PO DAILY potassium chloride 20 mEq Tablet Extended Release 20 meq PO DAILY Referrals Follow up/Referrals: Provider,Referral, MD [Primary Care Provider] - See instructions Clinical Impressions Clinical Impression: C2 cervical fracture, Fracture of nasal bone, Fall, Laceration of eyebrow, left Stand Alone Forms Stand Alone Forms: Transfer Record - ED Discharge ED Provider: Gricel Maya General Adult HPI General Chief complaint: Fall Stated complaint: Fall out of wheelchair & hit face Time Seen by Provider: 11/28/23 07:21 Mode of Arrival: EMS Source of Information: Patient Limitations: Altered Mental Status Description of Symptoms (Recalled from ER Triage Doc. by RN): Pt brought in via [facility]. jail staff reports pt was sitting her in wheelchair at the nurses stations, asleep and fell out onto the floor. History of Present Illness HPI narrative: This patient is an 88-year-old female with a history of CAD with NSTEMI, CHF, hypertension, hyperlipidemia, GERD, and memory impairment presented to the emergency department for evaluation with concern for fall. Patient reports that she was sitting in her wheelchair when she leaned forward to get something, falling forward and hitting her eye on a drawer. She denies loss of consciousness. She has a superficial eyelid laceration and swelling to her left face, but she denies any concerns such as vision changes, pain, numbness, tingl ing, or other issues. She states she falls a lot. EMS arrived with the patient who notes that she was alert and conversational en route with reassuring vital signs. Patient denies anticoagulation but I do see aspirin listed on her med list. Related Data Home Medications Medication Instructions Recorded Confirmed amlodipine 10 mg tablet 10 mg PO DAILY High blood pressure 03/02/22 03/02/22 aspirin 81 mg tablet 81 mg PO DAILY Blood thinner 03/02/22 03/02/22 donepezil 5 mg tablet 5 mg PO DAILY dementia 03/02/22 03/02/22 furosemide 20 mg tablet 40 mg PO DAILY Edema 03/02/22 03/02/22 gabapentin 300 mg capsule 300 mg PO BID pain 03/02/22 03/02/22 hydrochlorothiazide 25 mg tablet 25 mg PO DAILY High blood pressure 03/02/22 03/02/22 multivitamin 1 tab PO DAILY Diet supplement 03/02/22 03/02/22 pantoprazole 40 mg tablet,delayed 40 mg PO DAILY GERD 03/02/22 03/02/22 release (Protonix) potassium chloride 20 mEq 20 meq PO DAILY Diet supplement 03/02/22 03/02/22 tablet,extended release sertraline 100 mg tablet (Zoloft) 100 mg PO DAILY Depression 03/02/22 03/02/22 Allergies Allergy/AdvReac Type Severity Reaction Status Date / Time dexamethasone Allergy Verified 09/04/20 15:49 ofloxacin [From Floxin] Allergy Verified 09/04/20 15:49 Penicillins Allergy Verified 09/04/20 15:49 prednisone Allergy Verified 09/04/20 15:49 [facility] Disclaimer: The information contained in this section may have been updated after the patient was seen, as this information can be updated by other users. Medical History Cerebral infarction CHF (congestive heart failure) Non-ST elevated myocardial infarction (non-STEMI) Benign neoplasm of meninges, unspecified Pain in left knee Atherosclerotic heart disease [place] coronary artery w/angina pectoris Essential hypertension Major depressive disorder, single episode, unspecified Vascular dementia, unspecified severity, without behavioral disturbance, psychotic disturbance, mood disturbance, and anxiety Hyperlipidemia Recurrent dislocation, right hip Hx of falling History of COVID-19 Aphasia Flaccid hemiplegia affecting unspecified side Malnutrition Surgical History Presence of right artificial hip joint Family History Other Family history non-contributory Social History Smoking Status: Never smoker alcohol intake: never current occupational status: retired Travel in the last 8 weeks: Inside the [place] housing: custodial marital status: civil union ROS Obtained: Yes All systems reviewed & no additional complaints except as documented Physical Exam General General appearance: alert and in no apparent distress Head Head exam: normocephalic and other (Left periorbital ecchymosis and swelling. Laceration L eyebrow, 2.5 cm, irregular) Eye Eye exam: Present normal appearance, PERRL and EOMI; Absent conjunctival redness or conjunctival injection ENT ENT exam: Present normal exam, normal oropharynx, mucous membranes moist and normal external ear exam Neck Neck exam: Present normal inspection, full ROM and trachea midline; Absent tenderness Chest Chest inspection: Present normal inspection and symmetric chest wall rise; Absent tenderness Respiratory Respiratory exam: Present normal lung sounds bilaterally; Absent respiratory distress, wheezes, stridor or accessory muscle use Cardiovascular Cardiovascular exam: Present regular rate and normal rhythm Abdominal Exam Abdominal exam: Present soft; Absent distention, tenderness or guarding Extremities Exam Extremities exam: Present normal inspection, full ROM and normal capillary refill; Absent tenderness or edema Back Exam Back exam: Present normal inspection and full ROM; Absent tenderness Neurological Exam Neurological exam: Present alert, CN II-XII intact and other (At her neurologic baseline); Absent motor sensory deficit Psychiatric Psychiatric exam: Present normal affect and normal mood Skin Skin exam: Present warm and dry Medical Decision Making Medical Records Medical records reviewed: Yes I reviewed the patient's medical records. Jeff Inquiry Pt receiving controlled substance: No Vital Signs: 11/28/23 07:23 11/28/23 07:31 11/28/23 08:30 Temperature 97.5 F L Temperature Source Oral Pulse Rate 73 74 Pulse Rate [Right Brachial] 62 Respiratory Rate 16 Blood Pressure 140/56 L 118/63 Blood Pressure [Right Arm] 132/63 Blood Pressure Mean 84 75 Blood Pressure Mean [Right Arm] 86 02 Sat by Pulse Oximetry 97 95 96 Oxygen Delivery Method Room Air 11/28/23 09:01 Temperature Temperature Source Pulse Rate 74 Pulse Rate [Right Brachial] Respiratory Rate Blood Pressure 160/59 H Blood Pressure [Right Arm] Blood Pressure Mean 80 Blood Pressure Mean [Right Arm] 02 Sat by Pulse Oximetry 97 Oxygen Delivery Method Room Air Lab Data Lab results reviewed: Yes I reviewed the patient's lab results. Orders (Tests/Meds): ED MEDICATIONS Discontinued Medications Generic Name Dose Route Start Last Admin Trade Name Freq PRN Reason Stop Dose Admin Bacitracin 1 each 11/28/23 08:26 11/28/23 08:46 Bacitracin Oint 0.9gm Udp TP 11/28/23 08:27 1 each ONCE ONE Administration Lidocaine/Epinephrine 20 ml 11/28/23 08:26 11/28/23 08:46 Lidocaine 1% W/Epi 1:100,000 20ml Vial IJ 11/28/23 08:27 20 ml ONCE ONE Administration Tetanus/Reduced Diphtheria/Acell Pertussis 0.5 ml 11/28/23 07:36 11/28/23 08:28 Tet/Diphth/Pert-Adult 0.5ml Syringe IM 11/28/23 07:37 0.5 ml .ONCE ONE Administration ORDERS Category Date Time Status CT cervical spine wo con Stat Cat Scan 11/28/23 07:[address] facial bones wo con Stat Cat Scan 11/28/23 07:[address] head/brain wo con Stat Cat Scan 11/28/23 07:32 Completed CXR --portable [XR chest portable] Stat Exams 11/28/23 07:32 Completed Pelvis XR 1-2 views [XR pelvis 1-2V] Stat Exams 11/28/23 07:32 Completed Medical Decision Narrative: In summary, this patient is a 88-year-old female presenting to the Emergency Department for evaluation of fall with facial injury. Differential diagnoses considered include but are not limited to facial fracture, intracranial hemorrhage, laceration, contusion, ocular injury. Ruling out the most morbid conditions drove assessment. It should be noted patient's history includes hypertension, hyperlipidemia, CAD, CHF, and memory impairment which may or may not be at goal therapy. This complicates all aspects of care by increasing patient's risk for morbidity. I reviewed patient's past medical records and noted previous evaluations for fall in the past. On exam, the patient is alert and conversational. She is at her neurologic baseline. She is resting comfortably. Workup included CT head, CT face, and CT C-spine as well as chest x-ray and pelvic x-ray to evaluate for potential traumatic injury. She denies any other concerns or complaints, so I do not feel that other labs or imaging are indicated. Will administer Tdap booster if she is not up-to-date given the laceration to her left eyebrow. I independently interpreted CT scans prior to the radiologist read and noted C2 fracture and nasal bone fractures. Please see their read for final interpretation. Patient continues to complain of no pain. Peers to be at her neurologic baseline. She has good motor function in all 4 extremities, but symmetric bilateral lower extremity weakness. It is difficult to gauge sensation given her baseline mild aphasia and dysarthria secondary to vascular dementia and prior stroke. Her left eyebrow laceration was repaired with absorbable suture. She tolerated this very well. Please see procedure note for further documentation. Ultimately given the patient has C2 fracture and nasal bone fractures, I feel she would benefit from transfer to higher level of care for spine evaluation. She is still immobilized in a c-collar at this time. I called and had an interactive discussion with Dr. Melara at who accepted the patient to [facility] emergency department for further evaluation and management. EMS transport was arranged, and the patient was transferred in stable condition. Son is at bedside and was updated to plan of care. Procedures Risk/Benefits of Procedure(s) Were Explained: Yes Laceration Laceration 1: Site: face Side (If applicable): left Size (cm): 2.5 Description: irregular and clean Depth: simple, single layer Local Anesthetic: lidocaine 1% and with epi Amount of anesthesia used (mL): 3 Pre-repair: wound explored, irrigated extensively and deep structures intact Skin layer closed with: other (Fast-absorbing gut) Size (cm): 5-0 Number of sutures: 5 Critical Care Critical Care Time Critical Care Time: No
--- NOTE | 2023-11-28 08:13 | PC.NURSE ---
pt back in room
[2023-11-28] MEDS: TET/DIPHTH/PERT-ADULT 0.5ML SYRINGE 0.5 ML IM (08:28)
[2023-11-28 08:30] VITALS: BP 118/63; PULSE 74; O2SAT 96
--- NOTE | 2023-11-28 08:41 | PC.NURSE ---
c-collar placed on pt
--- NOTE | 2023-11-28 08:43 | PC.NURSE ---
Ct RN speaking with about transfer with spine team
[2023-11-28] MEDS: BACITRACIN OINT 0.9GM UDP 1 EACH TP (08:46)
[2023-11-28] MEDS: LIDOCAINE 1% W/EPI 1:100,000 20ML VIAL 20 ML IJ (08:46)
--- NOTE | 2023-11-28 08:59 | PC.NURSE ---
[facility] notified or transfer to ER
[2023-11-28 09:01] VITALS: BP 160/59; PULSE 74; O2SAT 97
--- NOTE | 2023-11-28 09:01 | PC.NURSE ---
Report called to SELMA Olivia at ED.
--- NOTE | 2023-11-28 09:02 | PC.NURSE ---
Dr. Maya at for LAC repair
[2023-11-28 09:18] VITALS: BP 135/66; PULSE 67; RESP 18; TEMP 36.4; O2SAT 96
== END 2023-11-28 09:20 | disposition short-term general hospital (02) ==
PROVIDERS: Emergency Provider Emergency Medicine
DX: S12.100A Unspecified displaced fracture of second cervical vertebra, initial encounter for closed fracture (principal); S02.2XXA Fracture of nasal bones, initial encounter for closed fracture; S01.112A Laceration without foreign body of left eyelid and periocular area, initial encounter; W05.0XXA Fall from non-moving wheelchair, initial encounter; Z23 Encounter for immunization
CPT/HCPCS: 12011; 70450; 70486; 71045; 72125; 72170; 90471; 90715; 99285

== ENCOUNTER 2023-11-30 20:23 | Observation (INO) | payer MEDICARE, OTHER, MEDICAID, SELFPAY ==
[2023-11-30] VITALS (9 sets, daily range): BP systolic 101–174; BP diastolic 49–80; PULSE 72–96; RESP 12–20; TEMP 36.6–36.7; O2SAT 92–96; BMI 30.8; BMI 24.5
--- NOTE | 2023-11-30 19:18 | PC.NURSE ---
Report from Aster at [facility] for 88 F, DNR-- acute lethargy and abdominal breathing citals: 162/85, 99.1 temp, 101 HR, 74%-83% on room air so placed on 3L/NC with saturation as high as 91%. Patient responds to painful stimuli at current time. She is confused with dementia at baseline
--- NOTE | 2023-11-30 20:34 | XR_ITS ---
PROCEDURE INFORMATION: Exam: XR Chest Exam date and time: 11/30/2023 9:36 PM Age: 88 years old Clinical indication: Shortness of breath; Additional info: SOA hypoxia TECHNIQUE: Imaging protocol: Radiologic exam of the chest. Views: 1 view. COMPARISON: CR XR CHEST PORTABLE 11/28/2023 8:03 AM FINDINGS: Lungs: Sub optimal inspiratory effort. Left mid to lower lung zone subsegmental atelectasis. Mild interstitial prominence. Pleural spaces: Unremarkable. No pleural effusion. No pneumothorax. Heart/Mediastinum: Unremarkable. No cardiomegaly. Diaphragm: Persistent elevation of right hemidiaphragm. Bones/joints: Unremarkable. IMPRESSION: Mild interstitial prominence suspicious for pulmonary edema. Subsegmental atelectasis.
--- NOTE | 2023-11-30 20:35 | CT_ITS ---
PROCEDURE INFORMATION: Exam: CT Head Without Contrast Exam date and time: 11/30/2023 9:50 PM Age: 88 years old Clinical indication: Altered mental status/memory loss; Additional info: AMS TECHNIQUE: Imaging protocol: Computed tomography of the head without contrast. Radiation optimization: All CT scans at this facility use at least one of these dose optimization techniques: automated exposure control; mA and/or kV adjustment per patient size (includes targeted exams where dose is matched to clinical indication); or iterative reconstruction. COMPARISON: 1. CT HEAD/BRAIN WO CON 11/28/2023 7:[address] HEAD/BRAIN WO CON 09/07/2023 3:[address] HEAD/BRAIN WO CON 08/25/2020 6:46 PM FINDINGS: Brain: Left parafalcine partially calcified lesion measuring up to 1.9 cm most likely reflecting a meningioma is again noted. Focal areas of encephalomalacia such as in the left basal ganglia are consistent with old infarct. The brain parenchyma appears unremarkable, with no signs of acute intracranial hemorrhage or significant mass effect. There is hypodensity in the subcortical and periventricular white matter which is technically nonspecific but most often related to chronic microvascular disease. Cerebral ventricles: Mild ventricular enlargement consistent with age-related cerebral atrophy is noted. Paranasal sinuses: Paranasal sinuses show age-appropriate mucosal thickening. Mastoid air cells: Visualized mastoid air cells are well aerated. Bones: Multiple nasal bone fractures are again noted. There are no skull fractures or bony lesions. Soft tissues: Left-sided frontal and periorbital hematoma is again noted, decreased from prior. IMPRESSION: 1. Extensive chronic changes with decreasing soft tissue swelling adjacent to the left frontal calvarium. No acute intracranial abnormality. 2. If clinical concern persists, MRI would be suggested.
--- NOTE | 2023-11-30 20:38 | HMH.EDGENADL ---
Discharge Plan Disposition Patient Disposition: Admitted Prescriptions Prescriptions: No Action multivitamin Tablet 1 tab PO DAILY donepezil 5 mg tablet 5 mg PO DAILY sertraline [Zoloft] 100 mg Tablet 100 mg PO DAILY amlodipine 10 mg tablet 10 mg PO DAILY pantoprazole [Protonix] 40 mg Tablet,Delayed Release (Dr/Ec) 40 mg PO DAILY gabapentin 300 mg Capsule 300 mg PO BID aspirin 81 mg Tablet 81 mg PO DAILY hydrochlorothiazide 25 mg tablet 25 mg PO DAILY furosemide 20 mg tablet 40 mg PO DAILY potassium chloride 20 mEq Tablet Extended Release 20 meq PO DAILY Referrals Follow up/Referrals: Anshu Medellin [Primary Care Provider] - See instructions Clinical Impressions Clinical Impression: Hypoxia, Altered mental status Print Language Print Language: Yakut Discharge ED Provider: Tyson Sanchez General Adult HPI General Chief complaint: Upper Respiratory Infection Stated complaint: Difficulty breathing, lethargy Time Seen by Provider: 11/30/23 20:25 Mode of Arrival: EMS Source of Information: EMS Limitations: Altered Mental Status Description of Symptoms (Recalled from ER Triage Doc. by RN): 88 F presents from [facility] after staff noted patient to be more lethargic and having abdominal breathing with oxygen saturations between 74%-83%. Staff reported placing patient on 3L/NC and got her oxygen to 91%. Patient only responding to painful stimuli per care home staff. Patient arrives in her c-collar which was placed at [facility] to be worn for 6 weeks r/t a C2 spine fracture after a fall. History of Present Illness HPI narrative: 88-year-old female presents to the ER from [facility] for concerns from staff of increased lethargy, increased work of breathing, new oxygen requirement. Patient had a fall 2 days ago and was transferred to [facility] [place] [place] with C2 fracture. Patient was discharged back to her care home and per family including son, Godwin, who is also her power of retail equipment associate, patient had been interactive and behaving at her baseline which includes intermittent mild confusion and age-related weakness, but no focal deficits. Today care home became concerned that she had decreased appetite, increased lethargy, she developed increased work of breathing, and they checked her pulse ox which demonstrated oxygenation between 74 and 80% on room air. They started her on nasal cannula and called EMS. EMS improved her oxygen on 4 L nasal cannula and transported the patient to our ER for continued evaluation. Patient is quite altered and does not contribute to history. History obtained from EMS and family. Patient is not on any blood thinners, no additional falls since 2 days ago. Son, Godwin, does express he has been concerned about the amount of pain medication they are giving her as it seems to make her sleepy. Related Data Home Medications ?Medication ?Instructions ?Recorded ?Confirmed amlodipine 10 mg tablet 10 mg PO DAILY High blood pressure 03/02/22 03/02/22 aspirin 81 mg tablet 81 mg PO DAILY Blood thinner 03/02/22 03/02/22 donepezil 5 mg tablet 5 mg PO DAILY dementia 03/02/22 03/02/22 furosemide 20 mg tablet 40 mg PO DAILY Edema 03/02/22 03/02/22 gabapentin 300 mg capsule 300 mg PO BID pain 03/02/22 03/02/22 hydrochlorothiazide 25 mg tablet 25 mg PO DAILY High blood pressure 03/02/22 03/02/22 multivitamin 1 tab PO DAILY Diet supplement 03/02/22 03/02/22 pantoprazole 40 mg tablet,delayed 40 mg PO DAILY GERD 03/02/22 03/02/22 release (Protonix) potassium chloride 20 mEq 20 meq PO DAILY Diet supplement 03/02/22 03/02/22 tablet,extended release sertraline 100 mg tablet (Zoloft) 100 mg PO DAILY Depression 03/02/22 03/02/22 Allergies Allergy/AdvReac Type Severity Reaction Status Date / Time dexamethasone Allergy Verified 09/04/20 15:49 ofloxacin [From Floxin] Allergy Verified 09/04/20 15:49 Penicillins Allergy Verified 09/04/20 15:49 prednisone Allergy Verified 09/04/20 15:49 [facility]SH [facility] Disclaimer: The information contained in this section may have been updated after the patient was seen, as this information can be updated by other users. Medical History Cerebral infarction CHF (congestive heart failure) Non-ST elevated myocardial infarction (non-STEMI) Benign neoplasm of meninges, unspecified Pain in left knee Atherosclerotic heart disease [place] coronary artery w/angina pectoris Essential hypertension Major depressive disorder, single episode, unspecified Vascular dementia, unspecified severity, without behavioral disturbance, psychotic disturbance, mood disturbance, and anxiety Hyperlipidemia Recurrent dislocation, right hip Hx of falling History of COVID-19 Aphasia Flaccid hemiplegia affecting unspecified side Malnutrition Surgical History Presence of right artificial hip joint Family History Other Family history non-contributory Social History Smoking Status: Never smoker alcohol intake: never current occupational status: retired Travel in the last 8 weeks: Inside the [place] housing: care home marital status: civil union ROS Obtained: Yes unobtainable due to mental status Physical Exam General General appearance: alert, in no apparent distress and lethargic Comment: Ill-appearing but no acute distress Head Head exam: normocephalic and other (Bilateral periorbital ecchymosis) Eye Eye exam: Present PERRL and EOMI ENT ENT exam: Present mucous membranes dry Neck Neck exam: Present trachea midline and other (C-collar in place) Chest Chest inspection: Present symmetric chest wall rise Respiratory Respiratory exam: Absent normal lung sounds bilaterally (Rhonchi/Rales, diminished air movement) or stridor Cardiovascular Cardiovascular exam: Present regular rate and normal rhythm Abdominal Exam Abdominal exam: Present soft; Absent distention or tenderness Extremities Exam Extremities exam: Present full ROM; Absent joint swelling Neurological Exam Neurological exam: Absent alert or oriented X3 Expanded Neurological Exam Coma scale eye opening: To pain Coma scale motor response: Withdraws to pain Coma scale verbal response: Incomprehensible Coma scale total: 8 Skin Skin exam: Present warm and dry Medical Decision Making Jeff Inquiry Pt receiving controlled substance: No Vital Signs: 11/30/23 20:23 11/30/23 20:29 11/30/23 20:39 Temperature 98 F 98 F Temperature Source Axillary Axillary Pulse Rate 96 H Pulse Rate [Left] 94 H 94 H Respiratory Rate 15 14 12 Blood Pressure 162/80 H Blood Pressure [Right Arm] 162/80 H 162/80 H Blood Pressure Mean 103 Blood Pressure Mean [Right Arm] 107 107 Blood Pressure Source [Right Arm] Automatic Cuff Automatic Cuff Blood Pressure Position [Right Arm] Supine 02 Sat by Pulse Oximetry 94 L 94 L 94 L Oxygen Delivery Method Nasal Cannula Nasal Cannula Nasal Cannula Oxygen Flow Rate (LPM) 2 2 2 11/30/23 21:00 11/30/23 21:20 11/30/23 21:20 Temperature Temperature Source Pulse Rate 86 85 85 Pulse Rate [Left] Respiratory Rate 13 Blood Pressure 133/65 Blood Pressure [Right Arm] Blood Pressure Mean 110 Blood Pressure Mean [Right Arm] Blood Pressure Source [Right Arm] Blood Pressure Position [Right Arm] 02 Sat by Pulse Oximetry 96 Oxygen Delivery Method Nasal Cannula Oxygen Flow Rate (LPM) 2 11/30/23 21:30 11/30/23 22:31 11/30/23 23:00 Temperature Temperature Source Pulse Rate 89 86 81 Pulse Rate [Left] Respiratory Rate 20 14 14 Blood Pressure 174/79 H 101/55 L 145/61 H Blood Pressure [Right Arm] Blood Pressure Mean 110 85 95 Blood Pressure Mean [Right Arm] Blood Pressure Source [Right Arm] Blood Pressure Position [Right Arm] 02 Sat by Pulse Oximetry 92 L 92 L 92 L Oxygen Delivery Method Nasal Cannula Nasal Cannula Nasal Cannula Oxygen Flow Rate (LPM) 2 2 2 Lab Data Lab Results 11/30/23 20:45: WBC 7.0, RBC 5.01, Hgb 10.1 L, Hct 33.6 L, MCV 67.1 L, MCH 20.1 L, MCHC 30.0 L, RDW 17.7 H, Plt Count 168, MPV 7.3 L, Neut % (Auto) 82.0 H, Lymph % (Auto) 10.6, [place] % (Auto) 5.1, Eos % (Auto) 1.8, Baso % (Auto) 0.5, Neut # (Auto) 5.7, Lymph # (Auto) 0.7, [place] # (Auto) 0.4, Eos # (Auto) 0.1, Baso # (Auto) 0.0, Sodium 148 H 11/30/23 20:45: Sodium 147 H, Potassium 3.8 11/30/23 20:45: Potassium 3.9, Chloride 108 H 11/30/23 20:45: Chloride 109 H, Carbon Dioxide 30 11/30/23 20:45: Carbon Dioxide 31 H, Anion Gap 13.8 11/30/23 20:45: Anion Gap 10.9, BUN 43 H 11/30/23 20:45: BUN 43 H, Creatinine 1.60 H 11/30/23 20:45: Creatinine 1.60 H, Estimated Creat Clear 11/30/23 20:45: Estimated Creat Clear 23, Estimated GFR 30 L 11/30/23 20:45: Estimated GFR 30 L, Est GFR ( Amer) 37 L 11/30/23 20:45: Est GFR ( Amer) 37 L, Glucose 161 H 11/30/23 20:45: Glucose 160 H, Calcium 9.5 11/30/23 20:45: Calcium 9.4, Total Bilirubin 0.5, AST 42 H, ALT 22, Alkaline Phosphatase 110, Troponin I 0.02, Total Protein 7.9, Albumin 4.2, Globulin 3.7 H, Albumin/Globulin Ratio 1.1 11/30/23 21:30: Urine Color Yellow, Urine Appearance Clear, Urine pH 5.5, Ur Specific Mcloud 1.025, Urine Protein Negative, Urine Glucose (UA) Negative, Urine Ketones Negative, Urine Blood 2+, Urine Nitrate Negative, Urine Bilirubin Negative, Urine Urobilinogen 0.2, Ur Leukocyte Esterase 1+ A, Urine RBC 3-5, Urine WBC 5-10, Ur Squamous Epith Cells 3-5, Urine Bacteria 1+, Hyaline Casts 3-5, Urine Opiates Screen Positive H, Urine Methadone Screen Negative, Ur Barbituates Screen Negative, Ur Phencyclidine Scrn Negative, Ur Amphetamines Screen Negative, U Benzodiazepines Scrn Negative, Urine Cocaine Screen Negative, U Marijuana (THC) Screen Negative 11/30/23 20:45 11/30/23 20:45 Orders (Tests/Meds): ED MEDICATIONS Generic Name Dose Route Start Last Admin Trade Name Freq PRN Reason Stop Dose Admin Acetaminophen 650 mg 11/30/23 23:24 Acetaminophen 325mg Tab PO 12/30/23 23:23 Q4HP PRN Fever or Mild Pain (1-3) Docusate Sodium 100 mg 12/01/23 09:00 Docusate Sodium 100 Mg Capsule PO 12/31/23 08:59 DAILY TIM Enoxaparin Sodium 40 mg 12/01/23 09:00 Enoxaparin 40mg/0.4ml Syringe SQ 12/31/23 08:59 DAILY TIM Sodium Chloride 1,000 mls @ 50 mls/hr 11/30/23 23:30 Sod Chlor 0.9% 1000ml Bag IV 12/30/23 23:29 .Q20H TIM Morphine Sulfate 2 mg 11/30/23 23:24 Morphine 2mg/Ml Syringe IV 12/30/23 23:23 Q2HP PRN Severe Pain (7-10) Nicotine 21 mg 11/30/23 23:24 Nicotine 21mg/24hr Patch TD 12/30/23 23:23 DAILYP PRN Nicotine Cravings Pantoprazole Sodium 40 mg 12/01/23 09:00 Pantoprazole 40mg Tablet PO 12/31/23 08:59 DAILY TIM Sodium Chloride 10 ml 11/30/23 22:04 11/30/23 22:05 Sodium Chloride 0.9% 10ml Syr (Rad Only) IV 12/30/23 22:03 10 ml NEEDED PRN Administration Maintain IV Site Discontinued Medications Generic Name Dose Route Start Last Admin Trade Name Freq PRN Reason Stop Dose Admin Acetaminophen 1,000 mg 11/30/23 22:44 11/30/23 23:08 Acetaminophen 1,000mg/100ml Vial IV 11/30/23 22:45 1,000 mg ONCE ONE Administration Albuterol/Ipratropium 3 ml 11/30/23 20:48 11/30/23 21:12 Ipratropium/Albuterol 3 Ml Neb IH 11/30/23 20:49 3 ml ONCE ONE Administration Lactated Ringer's 1,000 mls @ 999 mls/hr 11/30/23 20:34 11/30/23 20:54 Lactated Ringer's 1000 Ml Bag IV 11/30/23 21:34 999 mls/hr .Q1H1M ONE Administration Lactated Ringer's 1,000 mls @ 999 mls/hr 11/30/23 21:29 11/30/23 22:11 Lactated Ringer's 1000 Ml Bag IV 11/30/23 22:29 999 mls/hr .Q1H1M ONE Administration Iopamidol 75 ml 11/30/23 22:04 11/30/23 22:05 Iopamidol-370 (76%);100ml Bottle IV 11/30/23 22:05 75 ml ONCE ONE Administration Sodium Chloride 50 ml 11/30/23 22:04 11/30/23 22:05 0.9 % Sodium Chloride 50 Ml Vial IV 11/30/23 22:05 50 ml ONCE ONE Administration ORDERS Category Date Time Status CT abdomen pelvis w con Stat Cat Scan 11/30/23 21:[address] angio chest PE protocol Stat Cat Scan 11/30/23 20:[address] cervical spine wo con Stat Cat Scan 11/30/23 20:[address] head/brain wo con Stat Cat Scan 11/30/23 20:35 Completed CXR --portable [XR chest portable] Stat Exams 11/30/23 20:34 Completed BMP [Basic Metabolic Panel] Stat Lab 11/30/23 20:45 Completed CBC w/Auto Diff [Complete Blood Count Auto Diff] Stat Lab 11/30/23 20:45 Completed CMP [Comprehensive Metabolic Panel] Stat Lab 11/30/23 20:45 Completed Complete Blood Count Auto Diff AMLAB Lab 12/01/23 06:00 Ordered Comprehensive Metabolic Panel AMLAB Lab 12/01/23 06:00 Ordered Magnesium AMLAB Lab 12/01/23 06:00 Ordered Trop I [Troponin I] Stat Lab 11/30/23 20:45 Completed Troponin I Q3H Lab 11/30/23 23:45 Ordered Troponin I Q3H Lab 12/01/23 02:45 Ordered UDS [Drug Screen,Urine] Stat Lab 11/30/23 21:30 Completed Urinalysis and Microscopic Stat Lab 11/30/23 21:30 Completed Urine Culture Stat Micro 11/30/23 21:30 Received VBG [Venous Blood Gas] Stat RT 11/30/23 20:34 Received ECG Request Stat Y 11/30/23 21:20 Ordered ECG Request Stat Y 11/30/23 21:31 Ordered Medical Decision Narrative: 2035 Godwin - reports pt talking, knew about her fall, sometimes more forgetful than others, usually interacts and helps In summary, this 88-year-old female presents to the emergency department today with concerns of lethargy, altered mental status, hypoxia, increased work of breathing. On initial evaluation patient is ill-appearing with depressed GCS, however given history the patient is DNR, I did not immediately intubate. Differential diagnosis includes but is not limited to sepsis, pneumonia, urinary tract infection, lactic acidosis, electrolyte abnormality, intracranial bleed, spinal cord injury, worsening cervical fracture, PE, ACS, medication side effect. Based on these concerns, I ordered serum labs, imaging, cardiac workup. ECG personally interpreted demonstrates sinus rhythm, rate 89, borderline left axis deviation, patient does have ST changes in leads III, aVF, as well as depressions in lead I and aVL, however compared to previous ECG which I reviewed these are relatively unchanged. Repeat ECG pending. Patient received IV fluids, DuoNeb initially for treatment. Labs personally reviewed demonstrate no leukocytosis, anemia stable from September, mild hypernatremia and hyperchloremia, repeat labs pending, patient does have kidney dysfunction however this is similar to prior, will still proceed with contrasted CT scans and give fluid bolus. I believe the benefit of ruling out PE outweighs the risk of contrast-induced nephropathy at this time. Slight elevation in AST, other liver function tests normal, troponin stable from prior at 0.02. Chest x-ray personally interpreted does not demonstrate obvious lobar infiltrate. See radiology read for final interpretation. CT imaging personally interpreted demonstrates abnormal calcification in the posterior portion of patient's brain, this appears stable from prior. I also personally interpreted cervical spine imaging which demonstrates persistent C2 fracture. See radiology reads for full interpretations. I do not appreciate PE. Air in the bladder is secondary to catheterization for urine sample. Urinalysis is not convincing for infection at this time given patient is nitrate negative and only has few WBCs. Antibiotics not been initiated on this patient. She does have new mild hyponatremia, and based on pulmonary exam I have concerns that patient aspirated. Comorbidities of this include being in a c-collar which increases risk of aspiration. She continues to require nasal cannula and I believe requires admission. I had interactive discussion with the hospitalist regarding patient's presentation, continued altered mental status, oxygen requirement, ongoing concerns. He has accepted the patient for admission. Critical Care Critical Care Time Critical Care Time: Yes Attestation: On 11/30/23, the high probability of a clinically significant, sudden or life threatening deterioration of the following system(s) (respiratory, neuro) required my full and direct attention, intervention and personal management. The time I documented below is in addition to time spent performing reported procedures but includes the following listed in this critical care notation. Total Time Total Critical Care Time: 35
--- NOTE | 2023-11-30 20:40 | CT_ITS ---
PROCEDURE INFORMATION: Exam: CT Cervical Spine Without Contrast Exam date and time: 11/30/2023 9:53 PM Age: 88 years old Clinical indication: Injury or trauma; Fall; Additional info: Recent fall, c2, now AMS TECHNIQUE: Imaging protocol: Computed tomography of the cervical spine without contrast. Radiation optimization: All CT scans at this facility use at least one of these dose optimization techniques: automated exposure control; mA and/or kV adjustment per patient size (includes targeted exams where dose is matched to clinical indication); or iterative reconstruction. COMPARISON: 1. CT CERVICAL SPINE WO CON 11/28/2023 8:[address] CERVICAL SPINE WO CON 09/07/2023 3:[address] CERVICAL SPINE WO CON 08/25/2020 6:38 PM FINDINGS: Bones: There is diffuse osseous demineralization. The fracture through the anterior inferior endplate of C2 is again noted with slight interval superior shift of the fracture fragment. Alignment is relatively preserved. There is mild multilevel degenerative change with loss of intervertebral disc space. No aggressive osseous lesion. Lungs: Partially visualized chronic changes of the lungs. Vasculature: There are atherosclerotic calcifications of the carotid bulbs bilaterally. There are atherosclerotic calcifications of the carotid bulbs bilaterally. Soft tissues: Unremarkable. IMPRESSION: The fracture through the anterior inferior endplate of C2 is again noted with slight interval superior shift of the fracture fragment. No new fracture is identified.
--- NOTE | 2023-11-30 20:40 | CT_ITS ---
PROCEDURE INFORMATION: Exam: CTA Chest With Contrast Exam date and time: 11/30/2023 9:57 PM Age: 88 years old Clinical indication: Shortness of breath; Additional info: SOA hypoxia TECHNIQUE: Imaging protocol: Computed tomographic angiography of the chest with contrast. Exam focused on the arteries. 3D rendering (Not supervised by radiologist): MIP and/or 3D reconstructed images were created by the technologist. Radiation optimization: All CT scans at this facility use at least one of these dose optimization techniques: automated exposure control; mA and/or kV adjustment per patient size (includes targeted exams where dose is matched to clinical indication); or iterative reconstruction. Contrast material: ISOVUE; Contrast volume: 75 ml; Contrast route: INTRAVENOUS (IV); COMPARISON: CR XR CHEST PORTABLE 11/30/2023 9:36 PM FINDINGS: Pulmonary arteries: Normal. No pulmonary emboli. Aorta: Atherosclerotic calcification of thoracic aorta. No dissection. No aneurysm. Lungs: Bilateral lower lung zone subsegmental atelectasis. Mild patchy air trapping. Pleural spaces: Unremarkable. No pneumothorax. No pleural effusion. Heart: Unremarkable. No cardiomegaly. No pericardial effusion. Coronary arteries: Atherosclerotic calcification of coronary arteries. Lymph nodes: Unremarkable. No enlarged lymph nodes. Bones/joints: Unremarkable. No acute fracture. Soft tissues: Unremarkable. IMPRESSION: 1. No central or segmental pulmonary arterial embolism by CT criteria. 2. Subsegmental atelectasis and patchy air trapping.
[2023-11-30] MEDS: LACTATED RINGERS 1000ML 1,000 ML 999 ML IV ×2 (20:54→22:11)
[2023-11-30 20:56] LABS: Basophils % 0.5 % (0.1-2.0); Eosinophils # 0.1 K/mm3 (0.0-0.4); Eosinophils % 1.8 % (0.1-12.0); Hematocrit 33.6 % (37.0-47.0); Hemoglobin 10.1 g/dL (12.2-16.2); Lymphocytes # 0.7 K/mm3 (0.7-4.5); Lymphocytes % 10.6 % (10-50); Mean Corpuscular Hemoglobin 20.1 pg (27.0-31.2); Mean Corpuscular Volume 67.1 fl (81-99); Mean Platelet Volume 7.3 fl (7.4-10.4); Monocytes # 0.4 K/mm3 (0.1-1.0); Monocytes % 5.1 % (1.7-9.3); Neutrophils # 5.7 K/mm3 (1.8-7.8); Platelet Count 168 K/mm3 (142-424); Red Blood Count 5.01 M/mm3 (4.20-5.40); Red Cell Distribution Width 17.7 % (11.5-17.5)
--- NOTE | 2023-11-30 20:56 | ECG_ITS ---
APPROVED REPORT Exam: Resting ECG HR:89 bpm ECG Measurements Heart Rate 89 AXES OK 173 P 80 QRSd 118 QRS -25 QT 374 T 151 QTc 421 Conclusion SINUS RHYTHM LEFT VENTRICULAR HYPERTROPHY AND ST-T CHANGE [VOLTAGE CRITERIA PLUS ST/T ABNORMALITY] ABNORMAL ECG Abnormalities of the ST segment in lead III and aVF as well as T wave inversion in lead I and aVL, no STEMI, similar to previous ECG Electronically signed by : MARIO BARRERA, 11/30/2023 23:53:08
--- NOTE | 2023-11-30 20:56 | PC.NURSE ---
Spoke with MARBIN Rosas over the phone who stated patient is to be a DNR/DNI. Went over DNR form with POA to verify all information; also verified by 2nd RN Sakshi.
[2023-11-30 21:06] LABS: Chloride 108 mmol/L (98-107); Potassium 3.8 mmoL/L (3.5-5.1); Sodium 148 mmol/L (136-145)
[2023-11-30 21:09] LABS: Alanine Aminotransferase 22 U/L (12-78); Albumin Level 4.2 g/dl (3.5-5.0); Albumin/Globulin Ratio 1.1 (1.1-1.8); Alkaline Phosphatase 110 U/L (38-126); Anion Gap 13.8 mEq/L (5-15); Aspartate Amino Transferase 42 U/L (14-36); Bilirubin,Total 0.5 mg/dl (0.2-1.3); Blood Urea Nitrogen 43 mg/dl (7-17); Carbon Dioxide 30 mmol/L (22.0-30.0); Creatinine Clearance Estimated 23 mL/min (50-200); Estimated Glomerular Filt Rate 30 ml/min (>60); GFR (African American) 37 ML/MIN (>60); Globulin 3.7 g/dL (1.3-3.2); Total Protein,Serum 7.9 g/dl (6.3-8.2)
[2023-11-30 21:10] LABS: Calcium 9.5 mg/dl (8.4-10.2); Glucose 161 mg/dl (74-100)
[2023-11-30] MEDS: IPRATROPIUM/ALBUTEROL 3 ML NEB IH (21:12)
[2023-11-30 21:21] LABS: Troponin I 0.02 ng/ml (0.00-0.034)
--- NOTE | 2023-11-30 21:29 | CT_ITS ---
PROCEDURE INFORMATION: Exam: CT Abdomen And Pelvis With Contrast Exam date and time: 11/30/2023 9:57 PM Age: 88 years old Clinical indication: Abdominal pain; Additional info: AMS hypoxia TECHNIQUE: Imaging protocol: Computed tomography of the abdomen and pelvis with contrast. 3D rendering (Not supervised by radiologist): MIP and/or 3D reconstructed images were created by the technologist. Radiation optimization: All CT scans at this facility use at least one of these dose optimization techniques: automated exposure control; mA and/or kV adjustment per patient size (includes targeted exams where dose is matched to clinical indication); or iterative reconstruction. Contrast material: ISOVUE; Contrast volume: 75 ml; Contrast route: IV; COMPARISON: CR XR PELVIS 1-2V 11/28/2023 8:03 AM FINDINGS: Lungs: Bibasilar subsegmental atelectasis. Liver: Mild fatty liver. No mass. Gallbladder and biliary ducts: Distended gallbladder without gallstone or wall thickening. Pancreas: Normal. No ductal dilation. Spleen: Normal. No splenomegaly. Adrenal glands: Normal. No mass. Kidneys and ureters: 2.7 cm right renal mass. Otherwise unremarkable kidneys. Stomach and bowel: Sigmoid colonic diverticula without pericolonic fat stranding. Appendix: Not visualized. No cecal fat stranding. Intraperitoneal space: Unremarkable. No free air. No significant fluid collection. Vasculature: Atherosclerotic calcification of aortoiliac arteries. Lymph nodes: Unremarkable. No enlarged lymph nodes. Urinary bladder: Air within urinary bladder lumen. Mild pericystic fat stranding. Reproductive: Fibromatous uterus. Ovaries not visualized. Bones/joints: Unremarkable. No acute fracture. Right hip prosthesis. Soft tissues: Unremarkable. IMPRESSION: 1. Air within urinary bladder lumen with mild pericystic fat stranding. Query recent instrumentation. Query low-grade cystitis symptoms. 2. Fatty liver infiltration. 3. Possible cholestasis. 4. Colonic diverticulosis. COMMENTS: Consistent with the [employer]'s Incidental Findings Committee white paper (J Am Juan Radiol 2018): Any incidental renal lesion less than 1 cm or classified as too small to characterize, or any incidental cystic renal lesion characterized as simple-appearing, is likely benign. No follow-up imaging is recommended for these lesions per consensus recommendations based on imaging criteria.
[2023-11-30 21:34] LABS: Microscopic, Urine URINE MICROSCOPIC (MICROSCOPIC)
[2023-11-30 21:39] LABS: Appearance,Urine CLEAR (Clear); Bilirubin,Urine Negative (Negative); Blood, Urine 2+ (Negative); Color,Urine YELLOW (Yellow); Glucose,Urine (UA) Negative (Negative); Ketones,Urine Negative (Negative); Leukocyte Esterase,Urine 1+ (Negative); Nitrate,Urine Negative (Negative); PH,Urine 5.5 (5.0-8.5); Protein,Urine Negative (Negative); Specific Gravity, Urine 1.025 (1.005-1.030); Urobilinogen,Urine 0.2 EU/dl (0.2)
[2023-11-30 21:39] LABS: Chloride 109 mmol/L (98-107); Potassium 3.9 mmoL/L (3.5-5.1); Sodium 147 mmol/L (136-145)
[2023-11-30 21:42] LABS: Anion Gap 10.9 mEq/L (5-15); Blood Urea Nitrogen 43 mg/dl (7-17); Calcium 9.4 mg/dl (8.4-10.2); Carbon Dioxide 31 mmol/L (22.0-30.0); Creatinine Clearance Estimated 23 mL/min (50-200); Estimated Glomerular Filt Rate 30 ml/min (>60); GFR (African American) 37 ML/MIN (>60); Glucose 160 mg/dl (74-100)
[2023-11-30 21:44] LABS: Bacteria,Urine 1+ /lpf
[2023-11-30 21:54] LABS: Benzodiazepines Screen,Urine Negative ng/ml (<200)
[2023-11-30 21:55] LABS: Amphetamine/Metha Screen,Urine Negative ng/ml (<1000)
[2023-11-30 21:56] LABS: Barbiturates Screen,Urine Negative ng/ml (<200); Cannabinoid Screen,Urine Negative ng/ml (<50)
[2023-11-30 21:57] LABS: Cocaine Screen,Urine Negative ng/ml (<300)
[2023-11-30 21:58] LABS: Methadone Screen,Urine Negative ng/ml (<300); Opiate Screen,Urine Positive ng/ml (<300)
[2023-11-30 21:59] LABS: Phencyclidine Screen,Urine Negative ng/ml (<25)
[2023-11-30] MEDS: 0.9 % SODIUM CHLORIDE 50 ML VIAL IV (22:05)
[2023-11-30] MEDS: SODIUM CHLORIDE 0.9% 10ML SYR (RAD ONLY) 10 ML IV (22:05)
[2023-11-30] MEDS: IOPAMIDOL-370 (76%);100ML BOTTLE 75 ML IV (22:05)
--- NOTE | 2023-11-30 22:46 | ECG_ITS ---
APPROVED REPORT Exam: Resting ECG HR:84 bpm ECG Measurements Heart Rate 84 AXES IN 159 P 64 QRSd 108 QRS -33 QT 389 T 158 QTc 430 Conclusion SINUS RHYTHM LEFT AXIS DEVIATION [QRS AXIS < -30] PATTERN CONSISTENT WITH PULMONARY DISEASE LEFT VENTRICULAR HYPERTROPHY AND ST-T CHANGE [VOLTAGE CRITERIA PLUS ST/T ABNORMALITY] ST changes in the inferior leads with inversions in lead I and aVL are old, unchanged from prior. No STEMI Electronically signed by : MARIO BARRERA, 12/04/2023 03:41:32
[2023-11-30] MEDS: ACETAMINOPHEN 1,000MG/100ML VIAL 1000 MG IV (23:08)
--- NOTE | 2023-11-30 23:24 | PC.NURSE ---
House notified for admission
--- NOTE | 2023-11-30 23:25 | EXP.HP ---
History of Present Illness *Admission Date: 11/30/23 *Reason for visit:: AMS *History of present illness: This patient is an 88-year-old female with a history of CAD with NSTEMI, CHF, hypertension, hyperlipidemia, GERD, and memory impairment presented to presents to the ER from [facility] for concerns from staff of increased lethargy, increased work of breathing, new oxygen requirement. History is limitted due to patient mentation states. most of the HPI was obtained form ED documentation: Patient had a fall 2 days ago and was transferred to [facility] with C2 fracture. Patient was discharged back to her assisted and per family including son, Godwin, who is also her power of contract attorney, patient had been interactive and behaving at her baseline which includes intermittent mild confusion and age-related weakness, but no focal deficits. Today assisted became concerned that she had decreased appetite, increased lethargy, she developed increased work of breathing, and they checked her pulse ox which demonstrated oxygenation between 74 and 80% on room air. They started her on nasal cannula and called EMS. EMS improved her oxygen on 4 L nasal cannula and transported the patient to our ER for continued evaluation. Patient is quite altered and does not contribute to history. History obtained from EMS and family. Patient is not on any blood thinners, no additional falls since 2 days ago. Son, Godwin, does express he has been concerned about the amount of pain medication they are giving her as it seems to make her sleepy. [facility] Disclaimer: The information contained in this section may have been updated after the patient was seen, as this information can be updated by other users. Medical History (Updated 12/01/23 @ 06:32 by Lex Wallace APRN) Cerebral infarction CHF (congestive heart failure) Non-ST elevated myocardial infarction (non-STEMI) Benign neoplasm of meninges, unspecified Pain in left knee Atherosclerotic heart disease [place] coronary artery w/angina pectoris Essential hypertension Major depressive disorder, single episode, unspecified Vascular dementia, unspecified severity, without behavioral disturbance, psychotic disturbance, mood disturbance, and anxiety Hyperlipidemia Recurrent dislocation, right hip Hx of falling History of COVID-19 Aphasia Flaccid hemiplegia affecting unspecified side Malnutrition Surgical History Presence of right artificial hip joint Family History Other Family history non-contributory Social History (Updated 12/01/23 @ 00:48 by Ada Morillo RN) Smoking Status: Never smoker alcohol intake: never current occupational status: retired Travel in the last 8 weeks: Inside the [place] housing: assisted marital status: civil union Review of Systems Review of Systems Review of systems:: pertinent systems reviewed and negative unless documented below Meds Home Medications and Allergies Home Medications ?Medication ?Instructions ?Recorded ?Confirmed ?Type gabapentin 300 mg capsule 300 mg PO BID 03/02/22 12/01/23 History sertraline 100 mg tablet (Zoloft) 100 mg PO DAILY 03/02/22 12/01/23 History docusate sodium 100 mg tablet 100 mg PO BID PRN Constipation 12/01/23 12/01/23 History lorazepam 1 mg tablet (Ativan) 1 mg PO Q6H PRN agitation #30 tabs 12/01/23 Rx mirtazapine 15 mg tablet 15 mg PO HS 12/01/23 12/01/23 History morphine concentrate 100 mg/5 mL 5 mg (0.25 mL) PO Q4H PRN pain #30 12/01/23 Rx (20 mg/mL) oral solution mL New Prescriptions to Start Prescriptions: lorazepam [Ativan] Thomas Mujica morphine concentrate Thomas Mujica Allergies Allergy/AdvReac Type Severity Reaction Status Date / Time dexamethasone Allergy Verified 09/04/20 15:49 ofloxacin [From Floxin] Allergy Verified 09/04/20 15:49 Penicillins Allergy Verified 09/04/20 15:49 prednisone Allergy Verified 09/04/20 15:49 Exam Data for Last 24 hours Vital signs and Labs for Last 24 Hours: Temp Pulse Resp BP Pulse Ox O2 Del Method O2 Flow Rate 98 F 85 12 162/80 H 94 L Nasal Cannula 2 11/30/23 20:39 11/30/23 21:20 11/30/23 20:39 11/30/23 20:39 11/30/23 20:39 11/30/23 20:39 11/30/23 20:39 Laboratory Results - last 24 hr 11/30/23 20:45: WBC 7.0, RBC 5.01, Hgb 10.1 L, Hct 33.6 L, MCV 67.1 L, MCH 20.1 L, MCHC 30.0 L, RDW 17.7 H, Plt Count 168, MPV 7.3 L, Neut % (Auto) 82.0 H, Lymph % (Auto) 10.6, Grayson % (Auto) 5.1, Eos % (Auto) 1.8, Baso % (Auto) 0.5, Neut # (Auto) 5.7, Lymph # (Auto) 0.7, Grayson # (Auto) 0.4, Eos # (Auto) 0.1, Baso # (Auto) 0.0, Sodium 148 H 11/30/23 20:45: Sodium 147 H, Potassium 3.8 11/30/23 20:45: Potassium 3.9, Chloride 108 H 11/30/23 20:45: Chloride 109 H, Carbon Dioxide 30 11/30/23 20:45: Carbon Dioxide 31 H, Anion Gap 13.8 11/30/23 20:45: Anion Gap 10.9, BUN 43 H 11/30/23 20:45: BUN 43 H, Creatinine 1.60 H 11/30/23 20:45: Creatinine 1.60 H, Estimated Creat Clear 23 11/30/23 20:45: Estimated Creat Clear 23, Estimated GFR 30 L 11/30/23 20:45: Estimated GFR 30 L, Est GFR ( Amer) 37 L 11/30/23 20:45: Est GFR ( Amer) 37 L, Glucose 161 H 11/30/23 20:45: Glucose 160 H, Calcium 9.5 11/30/23 20:45: Calcium 9.4, Total Bilirubin 0.5, AST 42 H, ALT 22, Alkaline Phosphatase 110, Troponin I 0.02, Total Protein 7.9, Albumin 4.2, Globulin 3.7 H, Albumin/Globulin Ratio 1.1 11/30/23 21:30: Urine Color Yellow, Urine Appearance Clear, Urine pH 5.5, Ur Specific [place] 1.025, Urine Protein Negative, Urine Glucose (UA) Negative, Urine Ketones Negative, Urine Blood 2+, Urine Nitrate Negative, Urine Bilirubin Negative, Urine Urobilinogen 0.2, Ur Leukocyte Esterase 1+ A, Urine RBC 3-5, Urine WBC 5-10, Ur Squamous Epith Cells 3-5, Urine Bacteria 1+, Hyaline Casts 3-5, Urine Opiates Screen Positive H, Urine Methadone Screen Negative, Ur Barbituates Screen Negative, Ur Phencyclidine Scrn Negative, Ur Amphetamines Screen Negative, U Benzodiazepines Scrn Negative, Urine Cocaine Screen Negative, U Marijuana (THC) Screen Negative I & O for Last 24 hours: Intake & Output 11/27/23 11/28/23 11/29/23 11/30/23 23:59 23:59 23:59 23:59 Weight 60.781 kg Constitutional Constitutional: cachectic and somnolent *Routine HEENT Exam Head: Present normocephalic, laceration and hematoma; Absent atraumatic Eye: Present EOMI, PERRL and normal accommodation ENT: Present mucous membranes dry *Routine Neck Exam Neck: Absent full ROM Comments: collar *Routine Respiratory Exam Respiratory: Present decreased breath sounds, CTA bilaterally and distant breath sounds *Routine Cardiovascular Exam Cardiovascular: Present RRR, Normal S1 and Normal S2 *Routine Abdominal Exam Abdominal: Present soft and normoactive bowel sounds; Absent tenderness *Routine Rectal Exam Rectal:: deferred *Routine Genitalia Exam Genitalia:: deferred *Routine Extremities Exam Extremities: Absent cyanosis, clubbing or edema *Routine Skin Exam Skin: Present lesions, wounds and ecchymosis *Routine Neurological Exam Neurological: Present altered mental status Routine Psychiatric Exam Psychiatric: Present unable to assess H&P: Result Imaging and Cardiology EKG: Status: image reviewed by me, Preliminary report and final report Chest x-ray: Status: image reviewed by me, Preliminary report and final report CT scan - chest: Status: image reviewed by me, Preliminary report and final report CT scan - head: Status: image reviewed by me, Preliminary report and final report Assessment and Plan *Assessment and plan (1) Altered mental status: Status: Acute Qualifiers: Altered mental status type: somnolence Qualified Code(s): R40.0 - Somnolence Category: Medical Code(s): R41.82 - Altered mental status, unspecified (2) Hypoxia: Status: Acute Category: Medical Code(s): R09.02 - Hypoxemia (3) Laceration of eyebrow, left: Status: Acute Qualifiers: Encounter type: subsequent encounter Qualified Code(s): S01.112D - Laceration without foreign body of left eyelid and periocular area, subsequent encounter Category: Medical Code(s): S01.112A - Laceration without foreign body of left eyelid and periocular area, initial encounter (4) C2 cervical fracture: Status: Acute Qualifiers: Encounter type: subsequent encounter Fracture alignment: nondisplaced Fracture healing: with routine healing Fracture morphology: other fracture Fracture type: closed Qualified Code(s): S12.191D - Other nondisplaced fracture of second cervical vertebra, subsequent encounter for fracture with routine healing Category: Medical Code(s): S12.100A - Unspecified displaced fracture of second cervical vertebra, initial encounter for closed fracture (5) Hematoma: Status: Acute Category: Medical Code(s): T14.8XXA - Other injury of unspecified body region, initial encounter (6) CHF (congestive heart failure): Status: Acute Qualifiers: Heart failure chronicity: unspecified Heart failure type: unspecified Qualified Code(s): I50.9 - Heart failure, unspecified Category: Medical Code(s): I50.9 - Heart failure, unspecified (7) Essential hypertension: Status: Acute Category: Medical Code(s): I10 - Essential (primary) hypertension (8) Vascular dementia, unspecified severity, without behavioral disturbance, psychotic disturbance, mood disturbance, and anxiety: Status: Acute Qualifiers: Dementia severity: unspecified severity Qualified Code(s): F01.50 - Vascular dementia, unspecified severity, without behavioral disturbance, psychotic disturbance, mood disturbance, and anxiety Category: Medical Code(s): F01.50 - Vascular dementia, unspecified severity, without behavioral disturbance, psychotic disturbance, mood disturbance, and anxiety Plan 88-year-old female with a history of CAD with NSTEMI, CHF, hypertension, hyperlipidemia, GERD, and memory impairment presented to presents to the ER from [facility] for concerns from staff of increased lethargy, increased work of breathing, new oxygen requirement. on arrival patient was hypoxic and altered. Intubation was considered. patient is DNR. labs are stable. imaging was obtained. UDS positive for opiod. ED requested admission concerning of aspiration PNA, and AMS, Comorbidities of this include being in a c-collar which increases risk of aspiration. She continues to require nasal cannula. agreed for inpatient management: -AMS: suspected secondary to opoid treatment for pain management. hypoxia with new oxygen requirement to r/o aspiration PNA vs hypoventilation syndrome C2 fracture. C-collar in place laceration of eyebrow. after fall. in the process of healing hematoma Frail elderly patient s/p fall with injury admitted for inpatient managment pain managment. preference tylenol. avoid opid until mentation improves cont IV hydration o2 supplement. Currently 2L CXR and CTA reviwed. Low concern for PNA. will continue monitoring off abx UA culture pending PT/OT to eval and treat when mentation improves repeat daily labs Others chronic conditons reconciled and resumed hoe regimen avoid lorazepam on protonix for GI ppx. lovenox for DVT ppx DNR/DNI Rounded on patient after nurse practitioner. Personally examined and interviewed patient. Agree with exam findings and care plan as documented. Will discuss goals of care with son at bedside. Patient would be appropriate for hospice given her nonoperative neck fracture, decreased p.o. intake, progressive decline, longstanding wheelchair-bound status, advancing dementia.
--- NOTE | 2023-11-30 23:44 | PC.NURSE ---
2nd trop sent at 2165
--- NOTE | 2023-11-30 23:51 | PC.NURSE ---
Report called to SELMA Caballero
[2023-12-01 00:23] VITALS: BP 104/56; PULSE 74; RESP 18; TEMP 36.9; O2SAT 91; BMI 24.3
[2023-12-01 00:34] LABS: Troponin I 0.02 ng/ml (0.00-0.034)
[2023-12-01] MEDS: 0.9 % SODIUM CHLORIDE 1000ML 1,000 ML 50 ML IV (00:38)
[2023-12-01 03:08] LABS: Troponin I 0.03 ng/ml (0.00-0.034)
[2023-12-01 04:00] VITALS: BP 115/57; PULSE 81; RESP 18; TEMP 36.7; O2SAT 92; BMI 24.3
--- NOTE | 2023-12-01 04:26 | PC.NURSE ---
Addendum entered by Ada Morillo RN 12/01/23 05:09: After completing note, pt started yelling and moaning in pain, this continued after repositioning efforts, PRN medication given per jul. Original Note: Pt was admitted this shift. [facility] called for an update on patient and why she was admitted. Pt is only alert to self, responds to pain, GCS remains an 8. Turned Q2 hours, buttock area red, no open areas, optifoam applied. Bruising noted to bilateral eye areas. 2 abrasions noted to left arm on forearm and hand. Pt in a c-collar, in place for 6 weeks per [facility] records. Pt has rested since arriving to floor. Incontinent of brief, purewick in place. Bed alarm on. Call light in reach.
[2023-12-01] MEDS: MORPHINE 2MG/ML SYRINGE 2 MG IV ×2 (05:08→07:40)
--- NOTE | 2023-12-01 07:42 | CARE MANAGER ---
Addendum entered by Melita Garcias RN 12/01/23 12:06: [facility] will [facility]. Patient DC back today. Addendum entered by Melita Garcias RN 12/01/23 09:19: Information faxed to [facility] per request of son and MD. Original Note: Patient is [facility] level of care at [facility]. Will send updates later today.
[2023-12-01 07:47] VITALS: BP 127/60; PULSE 86; RESP 20; TEMP 36.8; O2SAT 92
--- NOTE | 2023-12-01 08:01 | HMH.PHAINT1 ---
Pharmacy Intervention Comments: HOME MEDICATION LIST VERIFIED USING LIST FROM OUTPATIENT PHARMACY
--- NOTE | 2023-12-01 08:21 | PC.NURSE ---
Pt. refused meds and is swatting at nurse and clinical nursing professor.
--- NOTE | 2023-12-01 09:10 | HMH.OTEV ---
OT Inpatient Evaluation Rehab OT IP Evaluation Start: 11/30/23 23:30 Freq: ONCE Status: Active Protocol: Document 12/01/23 09:00 DEJAN (Rec: 12/01/23 09:10 [id number] Rehab OT IP Assessment Subjective History Pt is an 88 year old female who was admitted on 11/30/23 due to AMS. Pt unable to provide any orientation questions due to increased agitation and confusion. Pt was verbally yelling out and hitting/kicking therapist. Pt unable to follow one step simple commands. Son present and all information was provided by him. Prior to being in the hospital, pt lived at a [facility] facility. Son explains pt is normally wheelchair bound or in bed; unable to transfer or ambulate independently. She also requires assistance with all ADLS such as feeding, dressing, and bathing. History and physical report: This patient is an 88-year-old female with a history of CAD with NSTEMI, CHF, hypertension , hyperlipidemia, GERD, and memory impairment presented to presents to the ER from [facility] for concerns from staff of increased lethargy, increased work of breathing, new oxygen requirement. History is limitted due to patient mentation states. most of the HPI was obtained form ED documentation: Patient had a fall 2 days ago and was transferred to [facility] [place] with C2 fracture. Patient was discharged back to her [facility] and per family including son, Godwin, who is also her power of bleach machine operator, patient had been interactive and behaving at her baseline which includes intermittent mild confusion and age-related weakness, but no focal deficits. Today mcc became concerned that she had decreased appetite, increased lethargy, she developed increased work of breathing, and they checked her pulse ox which demonstrated oxygenation between 74 and 80% on room air. They started her on nasal cannula and called EMS. EMS improved her oxygen on 4 L nasal cannula and transported the patient to our ER for continued evaluation. Patient is quite altered and does not contribute to history . History obtained from EMS and family. Patient is not on any blood thinners, no additional falls since 2 days ago. Son, Godwin, does express he has been concerned about the amount of pain medication they are giving her as it seems to make her sleepy. Subjective Pt yelling out loud during entire evaluation; pt had both mittens on, but continuously hitting therapist and kicking at therapist. Objective Right Upper Extremity Gross ROM WFL Left Upper Extremity Gross ROM WFL Bed Mobility bed mobility-scooting,bed mobility - supine/sit,bed mobility - rolling Assist Level Total/Dependent (100%) Rehab OT IP prob,goals,plan Problems Date of Evaluation: 12/01/23 Rehab Potential Rehab Potential Innapropriate for Skilled Therapy Discharge Plan OT Discharge Plan At this time, pt is inappropriate for skilled therapy services. Due to her continued confusion and agitation pt is unable to engage or follow any simple commands. Pt can return to SNF long term care pharmacist care once she is medically stable per physician. Eval Complexity Eval Charge Codes 48538 - Moderate Complexity PHYSICIAN CERTIFICATION: I certify the specified therapy services for Viri Rosas are required, authorized, and reviewed every 30 days.
--- NOTE | 2023-12-01 09:28 | HMH.PTEV ---
Physical Therapy Evaluation Rehab PT IP Evaluation Start: 11/30/23 23:30 Freq: ONCE Status: Active Protocol: Document 12/01/23 09:11 DEENA (Rec: 12/01/23 09:28 DEENA [id number]) Subjective/History History History Patient Viri Rosas is an 88-year-old female with a past medical history of CAD with NSTEMI, CHF, hypertension , hyperlipidemia, GERD, along with memory impairments. She is a resident [facility], it was explained by her son that she has been wheelchair/ bed bound for 4 years. She has had multiple falls but this recent once that occurred has been the worse. Most information was obtained from her son at this time due to her cognitive level. This recent fall occurred 2 days ago and resulted in C2 fracture, she does have an aspen collar on at this time. Subjective Subjective Due to cognitive level patient was unable to provide any information about pain or pain location a this time. Patient was on supplemental oxygen through a NC that remained on for the entirety of treatment session. Patient was a max x3 assist for bed mobility and was assisted to the EOB for approximately 5 minutes. Patient was assisted back to comfortable position and call was placed within reach. New diagnosis of cancer in past 12 No months? Rehab PT IP Eval Objective Appearance Patient Behavior Aggressive,Combative,Crying, Patient Baseline Difficulty following instructions severe Speech Pattern Slurred,Rambling,Patient Baseline Ambulation Patient Able to Ambulate No Balance Sitting Balance Leans or slides in chair Dynamic Sitting Balance Ability Fair Transfers Bed Transfer Ability Maximum x 2 (75% assist) Rehab PT IP prob,goals,plan Problems Date of Evaluation: 12/01/23 PT IP Problems Bed Mobility,Transfers,Safety Rehab Potential Rehab Potential Innapropriate for Skilled Therapy Discharge Plan PT Discharge Plan Patient is at baseline an not appropriate for skilled PT at this time, it is recommended she return to SNF as she was prior to adm. Per MD, hospice will be consulted. No further inpatient therapy needs at this time. Eval Complexity Eval Charge Codes 11709 - High Complexity PHYSICIAN CERTIFICATION: I certify the specified therapy services for Viri Rosas are required, authorized, and reviewed every 30 days.
--- NOTE | 2023-12-01 11:23 | P.DS_ITS ---
General Admission date:: 11/30/23 Discharge date: 12/01/23 HPI HPI HPI: This patient is an 88-year-old female with a history of CAD with NSTEMI, CHF, hypertension, hyperlipidemia, GERD, and memory impairment presented to presents to the ER from [facility] for concerns from staff of increased lethargy, increased work of breathing, new oxygen requirement. History is limitted due to patient mentation states. most of the HPI was obtained form ED documentation: Patient had a fall 2 days ago and was transferred to [facility] with C2 fracture. Patient was discharged back to her [facility] and per family including son, Godwin, who is also her power of divorce attorney, patient had been interactive and behaving at her baseline which includes intermittent mild confusion and age-related weakness, but no focal deficits. Today [facility] became concerned that she had decreased appetite, increased lethargy, she developed increased work of breathing, and they checked her pulse ox which de monstrated oxygenation between 74 and 80% on room air. They started her on nasal cannula and called EMS. EMS improved her oxygen on 4 L nasal cannula and transported the patient to our ER for continued evaluation. Patient is quite altered and does not contribute to history. History obtained from EMS and family. Patient is not on any blood thinners, no additional falls since 2 days ago. Son, Godwin, does express he has been concerned about the amount of pain medication they are giving her as it seems to make her sleepy. Hospital Course Hospital Course Hospital Course: 88-year-old female with a history of CAD with NSTEMI, CHF, hypertension, hyperlipidemia, GERD, and memory impairment presented to presents to the ER from [facility] for concerns from staff of increased lethargy, increased work of breathing, new oxygen requirement. on arrival patient was hypoxic and altered. Intubation was considered. patient is DNR. labs are stable. imaging was obtained. UDS positive for opiod. ED requested admission concerning of aspiration PNA, and AMS, Comorbidities of this include being in a c-collar which increases risk of aspiration. Continues to require oxygen. Goals of care discussion with son at bedside, would like to focus on keeping patient comfortable. In light of her comorbidities and neck fracture and worsening agitation and dementia along with decreased p.o. intake, will transition to hospice care. Evaluated by hospice, will transition back to [facility] for further care. AMS: suspected secondary to opoid treatment for pain management. hypoxia with new oxygen requirement to r/o aspiration PNA vs hypoventilation syndrome C2 fracture. C-collar in place laceration of eyebrow. after fall. in the process of healing hematoma Frail elderly patient s/p fall with injury admitted for inpatient managment. Discussed case with family. In light of all of her comorbidities, recent missed fracture, worsening agitation, decreased p.o. intake, dementia, hospice was consulted. Will transition to comfort care only. Ativan and morphine ordered for patient for agitation and pain. Medication list reviewed and de-escalated unnecessary medications. Continue supplemental oxygen for comfort. Allow for comfort feeds. Patient stable to transfer back to nursing facility for continued hospice care. Total time spent on discharge 32 minutes in counseling, discussion with family about goals of care, hospice consultation, medication adjustments, documentation, chart review, and direct care with patient. Exam Data for Last 24 hours Vital signs and Labs for Last 24 Hours: Temp Pulse Resp BP Pulse Ox O2 Del Method O2 Flow Rate 98.3 F 86 20 127/60 92 L Nasal Cannula 2 12/01/23 07:47 12/01/23 07:47 12/01/23 07:47 12/01/23 07:47 12/01/23 07:47 12/01/23 09:49 12/01/23 09:49 Laboratory Results - last 24 hr 11/30/23 20:45: WBC 7.0, RBC 5.01, Hgb 10.1 L, Hct 33.6 L, MCV 67.1 L, MCH 20.1 L, MCHC 30.0 L, RDW 17.7 H, Plt Count 168, MPV 7.3 L, Neut % (Auto) 82.0 H, Lymph % (Auto) 10.6, [place] % (Auto) 5.1, Eos % (Auto) 1.8, Baso % (Auto) 0.5, Neut # (Auto) 5.7, Lymph # (Auto) 0.7, [place] # (Auto) 0.4, Eos # (Auto) 0.1, Baso # (Auto) 0.0, Sodium 148 H 11/30/23 20:45: Sodium 147 H, Potassium 3.8 11/30/23 20:45: Potassium 3.9, Chloride 108 H 11/30/23 20:45: Chloride 109 H, Carbon Dioxide 30 11/30/23 20:45: Carbon Dioxide 31 H, Anion Gap 13.8 11/30/23 20:45: Anion Gap 10.9, BUN 43 H 11/30/23 20:45: BUN 43 H, Creatinine 1.60 H 11/30/23 20:45: Creatinine 1.60 H, Estimated Creat Clear 23 11/30/23 20:45: Estimated Creat Clear 23, Estimated GFR 30 L 11/30/23 20:45: Estimated GFR 30 L, Est GFR ( Amer) 37 L 11/30/23 20:45: Est GFR ( Amer) 37 L, Glucose 161 H 11/30/23 20:45: Glucose 160 H, Calcium 9.5 11/30/23 20:45: Calcium 9.4, Total Bilirubin 0.5, AST 42 H, ALT 22, Alkaline Phosphatase 110, Troponin I 0.02, Total Protein 7.9, Albumin 4.2, Globulin 3.7 H , Albumin/Globulin Ratio 1.1 11/30/23 21:30: Urine Color Yellow, Urine Appearance Clear, Urine pH 5.5, Ur Specific [place] 1.025, Urine Protein Negative, Urine Glucose (UA) Negative, Urine Ketones Negative, Urine Blood 2+, Urine Nitrate Negative, Urine Bilirubin Negative, Urine Urobilinogen 0.2, Ur Leukocyte Esterase 1+ A, Urine RBC 3-5, Urine WBC 5-10, Ur Squamous Epith Cells 3-5, Urine Bacteria 1+, Hyaline Casts 3- 5, Urine Opiates Screen Positive H, Urine Methadone Screen Negative, Ur Barbituates Screen Negative, Ur Phencyclidine Scrn Negative, Ur Amphetamines Screen Negative, U Benzodiazepines Scrn Negative, Urine Cocaine Screen Negative, U Marijuana (THC) Screen Negative 11/30/23 23:34: Troponin I 0.02 12/01/23 02:30: Troponin I 0.03 I & O for Last 24 hours: Intake & Output 11/28/23 11/29/23 11/30/23 12/01/23 23:59 23:59 23:59 23:59 Intake Total 2099 269 / 269 Output Total 400 / 400 Balance 2099 -131 / -131 Weight 60.781 kg 60.1 kg Constitutional Constitutional: mild distress, average body habitus, chronically ill appearing and agitated *Routine HEENT Exam Head: Present normocephalic; Absent atraumatic Eye: Present EOMI and PERRL ENT: Present mucous membranes moist Comments: Bruising to face from fall *Routine Neck Exam Neck: Absent lymphadenopathy Comments: In c-collar *Routine Respiratory Exam Respiratory: Present CTA bilaterally; Absent respiratory distress, rhonchi, stridor, wheezes or crackles *Routine Cardiovascular Exam Cardiovascular: Present RRR *Routine Abdominal Exam Abdominal: Present soft and normoactive bowel sounds; Absent tenderness *Routine Rectal Exam Patient deferred: visual exam *Routine Exam Patient deferred: external exam *Routine Extremities Exam Extremities: Absent cyanosis, clubbing or edema *Routine Skin Exam Skin: Present warm; Absent rash *Routine Neurological Exam Neurological: Present alert, altered mental status and moving all extremities Results Data Completed and Pending Labs on day of discharge: Labs from last 24 hours 12/01/23 11/30/23 11/30/23 02:30 23:34 21:30 WBC RBC Hgb Hct MCV MCH MCHC RDW Plt Count MPV Neut % (Auto) Lymph % (Auto) [place] % (Auto) Eos % (Auto) Baso % (Auto) Neut # (Auto) Lymph # (Auto) [place] # (Auto) Eos # (Auto) Baso # (Auto) Sodium Potassium Chloride Carbon Dioxide Anion Gap BUN Creatinine Estimated Creat Clear Estimated GFR Est GFR ( Amer) Glucose Calcium Total Bilirubin AST ALT Alkaline Phosphatase Troponin I 0.03 0.02 Total Protein Albumin Globulin Albumin/Globulin Ratio Urine Color Yellow Urine Appearance Clear Urine pH 5.5 Ur Specific [place] 1.025 Urine Protein Negative Urine Glucose (UA) Negative Urine Ketones Negative Urine Blood 2+ Urine Nitrate Negative Urine Bilirubin Negative Urine Urobilinogen 0.2 Ur Leukocyte Esterase 1+ A Urine RBC 3-5 Urine WBC 5-10 Ur Squamous Epith Cells 3-5 Urine Bacteria 1+ Hyaline Casts 3-5 Urine Opiates Screen Positive H Urine Methadone Screen Negative Ur Barbituates Screen Negative Ur Phencyclidine Scrn Negative Ur Amphetamines Screen Negative U Benzodiazepines Scrn Negative Urine Cocaine Screen Negative U Marijuana (THC) Screen Negative 11/30/23 11/30/23 11/30/23 20:45 20:45 20:45 WBC RBC Hgb Hct MCV MCH MCHC RDW Plt Count MPV Neut % (Auto) Lymph % (Auto) [place] % (Auto) Eos % (Auto) Baso % (Auto) Neut # (Auto) Lymph # (Auto) [place] # (Auto) Eos # (Auto) Baso # (Auto) Sodium Potassium Chloride Carbon Dioxide Anion Gap BUN Creatinine Estimated Creat Clear Estimated GFR Est GFR ( Amer) 37 L Glucose 160 H 161 H Calcium 9.4 9.5 Total Bilirubin 0.5 AST 42 H ALT 22 Alkaline Phosphatase 110 Troponin I 0.02 Total Protein 7.9 Albumin 4.2 Globulin 3.7 H Albumin/Globulin Ratio 1.1 Urine Color Urine Appearance Urine pH Ur Specific [place] Urine Protein Urine Glucose (UA) Urine Ketones Urine Blood Urine Nitrate Urine Bilirubin Urine Urobilinogen Ur Leukocyte Esterase Urine RBC Urine WBC Ur Squamous Epith Cells Urine Bacteria Hyaline Casts Urine Opiates Screen Urine Methadone Screen Ur Barbituates Screen Ur Phencyclidine Scrn Ur Amphetamines Screen U Benzodiazepines Scrn Urine Cocaine Screen U Marijuana (THC) Screen 11/30/23 11/30/23 11/30/23 20:45 20:45 20:45 WBC RBC Hgb Hct MCV MCH MCHC RDW Plt Count MPV Neut % (Auto) Lymph % (Auto) [place] % (Auto) Eos % (Auto) Baso % (Auto) Neut # (Auto) Lymph # (Auto) [place] # (Auto) Eos # (Auto) Baso # (Auto) Sodium Potassium Chloride Carbon Dioxide Anion Gap BUN Creatinine 1.60 H Estimated Creat Clear 23 23 Estimated GFR 30 L 30 L Est GFR ( Amer) 37 L Glucose Calcium Total Bilirubin AST ALT Alkaline Phosphatase Troponin I Total Protein Albumin Globulin Albumin/Globulin Ratio Urine Color Urine Appearance Urine pH Ur Specific [place] Urine Protein Urine Glucose (UA) Urine Ketones Urine Blood Urine Nitrate Urine Bilirubin Urine Urobilinogen Ur Leukocyte Esterase Urine RBC Urine WBC Ur Squamous Epith Cells Urine Bacteria Hyaline Casts Urine Opiates Screen Urine Methadone Screen Ur Barbituates Screen Ur Phencyclidine Scrn Ur Amphetamines Screen U Benzodiazepines Scrn Urine Cocaine Screen U Marijuana (THC) Screen 11/30/23 11/30/23 11/30/23 20:45 20:45 20:45 WBC RBC Hgb Hct MCV MCH MCHC RDW Plt Count MPV Neut % (Auto) Lymph % (Auto) [place] % (Auto) Eos % (Auto) Baso % (Auto) Neut # (Auto) Lymph # (Auto) [place] # (Auto) Eos # (Auto) Baso # (Auto) Sodium Potassium Chloride Carbon Dioxide 31 H Anion Gap 10.9 13.8 BUN 43 H 43 H Creatinine 1.60 H Estimated Creat Clear Estimated GFR Est GFR ( Amer) Glucose Calcium Total Bilirubin AST ALT Alkaline Phosphatase Troponin I Total Protein Albumin Globulin Albumin/Globulin Ratio Urine Color Urine Appearance Urine pH Ur Specific [place] Urine Protein Urine Glucose (UA) Urine Ketones Urine Blood Urine Nitrate Urine Bilirubin Urine Urobilinogen Ur Leukocyte Esterase Urine RBC Urine WBC Ur Squamous Epith Cells Urine Bacteria Hyaline Casts Urine Opiates Screen Urine Methadone Screen Ur Barbituates Screen Ur Phencyclidine Scrn Ur Amphetamines Screen U Benzodiazepines Scrn Urine Cocaine Screen U Marijuana (THC) Screen 11/30/23 11/30/23 11/30/23 20:45 20:45 20:45 WBC RBC Hgb Hct MCV MCH MCHC RDW Plt Count MPV Neut % (Auto) Lymph % (Auto) [place] % (Auto) Eos % (Auto) Baso % (Auto) Neut # (Auto) Lymph # (Auto) [place] # (Auto) Eos # (Auto) Baso # (Auto) Sodium 147 H Potassium 3.9 3.8 Chloride 109 H 108 H Carbon Dioxide 30 Anion Gap BUN Creatinine Estimated Creat Clear Estimated GFR Est GFR ( Amer) Glucose Calcium Total Bilirubin AST ALT Alkaline Phosphatase Troponin I Total Protein Albumin Globulin Albumin/Globulin Ratio Urine Color Urine Appearance Urine pH Ur Specific [place] Urine Protein Urine Glucose (UA) Urine Ketones Urine Blood Urine Nitrate Urine Bilirubin Urine Urobilinogen Ur Leukocyte Esterase Urine RBC Urine WBC Ur Squamous Epith Cells Urine Bacteria Hyaline Casts Urine Opiates Screen Urine Methadone Screen Ur Barbituates Screen Ur Phencyclidine Scrn Ur Amphetamines Screen U Benzodiazepines Scrn Urine Cocaine Screen U Marijuana (THC) Screen 11/30/23 20:45 WBC 7.0 RBC 5.01 Hgb 10.1 L Hct 33.6 L MCV 67.1 L MCH 20.1 L MCHC 30.0 L RDW 17.7 H Plt Count 168 MPV 7.3 L Neut % (Auto) 82.0 H Lymph % (Auto) 10.6 [place] % (Auto) 5.1 Eos % (Auto) 1.8 Baso % (Auto) 0.5 Neut # (Auto) 5.7 Lymph # (Auto) 0.7 [place] # (Auto) 0.4 Eos # (Auto) 0.1 Baso # (Auto) 0.0 Sodium 148 H Potassium Chloride Carbon Dioxide Anion Gap BUN Creatinine Estimated Creat Clear Estimated GFR Est GFR ( Amer) Glucose Calcium Total Bilirubin AST ALT Alkaline Phosphatase Troponin I Total Protein Albumin Globulin Albumin/Globulin Ratio Urine Color Urine Appearance Urine pH Ur Specific [place] Urine Protein Urine Glucose (UA) Urine Ketones Urine Blood Urine Nitrate Urine Bilirubin Urine Urobilinogen Ur Leukocyte Esterase Urine RBC Urine WBC Ur Squamous Epith Cells Urine Bacteria Hyaline Casts Urine Opiates Screen Urine Methadone Screen Ur Barbituates Screen Ur Phencyclidine Scrn Ur Amphetamines Screen U Benzodiazepines Scrn Urine Cocaine Screen U Marijuana (THC) Screen DS: Diagnosis Discharge Diagnosis (1) Altered mental status: Status: Acute Code(s): R41.82 - Altered mental status, unspecified Qualifiers: Altered mental status type: somnolence Qualified Code(s): R40.0 - Somnolence (2) Hypoxia: Status: Acute Code(s): R09.02 - Hypoxemia (3) Laceration of eyebrow, left: Status: Acute Code(s): S01.112A - Laceration without foreign body of left eyelid and periocular area, initial encounter Qualifiers: Encounter type: subsequent encounter Qualified Code(s): S01.112D - Laceration without foreign body of left eyelid and periocular area, subsequent encounter (4) C2 cervical fracture: Status: Acute Code(s): S12.100A - Unspecified displaced fracture of second cervical vertebra, initial encounter for closed fracture Qualifiers: Encounter type: subsequent encounter Fracture alignment: nondisplaced Fracture healing: with routine healing Fracture morphology: other fracture Fracture type: closed Qualified Code(s): S12.191D - Other nondisplaced fracture of second cervical vertebra, subsequent encounter for fracture with routine healing (5) Hematoma: Status: Acute Code(s): T14.8XXA - Other injury of unspecified body region, initial encounter (6) CHF (congestive heart failure): Status: Acute Code(s): I50.9 - Heart failure, unspecified Qualifiers: Heart failure type: unspecified Heart failure chronicity: unspecified Qualified Code(s): I50.9 - Heart failure, unspecified (7) Essential hypertension: Status: Acute Code(s): I10 - Essential (primary) hypertension (8) Vascular dementia, unspecified severity, without behavioral disturbance, psychotic disturbance, mood disturbance, and anxiety: Status: Acute Code(s): F01.50 - Vascular dementia, unspecified severity, without behavioral disturbance, psychotic disturbance, mood disturbance, and anxiety Qualifiers: Dementia severity: unspecified severity Qualified Code(s): F01.50 - Vascular dementia, unspecified severity, without behavioral disturbance, p sychotic disturbance, mood disturbance, and anxiety Meds Home Medications and Allergies Home Medications ?Medication ?Instructions ?Recorded ?Confirmed ?Type gabapentin 300 mg capsule 300 mg PO BID 03/02/22 12/01/23 History sertraline 100 mg tablet (Zoloft) 100 mg PO DAILY 03/02/22 12/01/23 History docusate sodium 100 mg tablet 100 mg PO BID PRN Constipation 12/01/23 12/01/23 History lorazepam 1 mg tablet (Ativan) 1 mg PO Q6H PRN agitation #30 tabs 12/01/23 Rx mirtazapine 15 mg tablet 15 mg PO HS 12/01/23 12/01/23 History morphine concentrate 100 mg/5 mL 5 mg (0.25 mL) PO Q4H PRN pain #30 12/01/23 Rx (20 mg/mL) oral solution mL New Prescriptions to Start Prescriptions: katty [Ativan] Thomas Mujica morphine concentrate Thomas Mujica Allergies Allergy/AdvReac Type Severity Reaction Status Date / Time dexamethasone Allergy Verified 09/04/20 15:49 ofloxacin [From Floxin] Allergy Verified 09/04/20 15:49 Penicillins Allergy Verified 09/04/20 15:49 prednisone Allergy Verified 09/04/20 15:49 Discharge Plan Disposition Patient Disposition: Hospice - Medical Facility Condition: Serious Discharge Order Discharge Orders: Discharge Order (Routine); Ordered 12/01/23 Ordered By: Thomas Mujica Follow up Plan Prescriptions/Medication Reconciliation: New morphine concentrate 100 mg/5 mL (20 mg/mL) solution 5 mg PO Q4H PRN (Reason: pain) Qty: 30 0RF lorazepam [Ativan] 1 mg tablet 1 mg PO Q6H PRN (Reason: agitation) Qty: 30 0RF Continued sertraline [Zoloft] 100 mg Tablet 100 mg PO DAILY gabapentin 300 mg Capsule 300 mg PO BID mirtazapine 15 mg Tablet 15 mg PO HS docusate sodium 100 mg Tablet 100 mg PO BID PRN (Reason: Constipation) Discontinued multivitamin Tablet 1 tab PO DAILY amlodipine 10 mg tablet 10 mg PO DAILY pantoprazole [Protonix] 40 mg Tablet,Delayed Release (Dr/Ec) 40 mg PO HS aspirin 81 mg Tablet 81 mg PO DAILY hydrochlorothiazide 25 mg tablet 25 mg PO DAILY cyanocobalamin (vitamin B-12) [Vitamin B-12] 1,000 mcg tablet extended release 1,000 mcg PO DAILY sennosides [senna] 8.6 mg Tablet 8.6 mg PO DAILY furosemide 40 mg tablet 40 mg PO DAILY potassium chloride 10 mEq capsule, extended release 40 meq PO DAILY Problem Reconciliation Problems Reviewed?: Yes Patient Discharge Instructions ACTIVITY: Continue current activity DIET: continue same diet Patient Instructions: DI for Altered Mental Status, DI for Hypoxia Print Language: Occitan Providers Primary Care Provider: nAshu Medellin Provider: Thomas Mujica Attending Provider: Thomas Mujica
--- NOTE | 2023-12-01 11:50 | PC.NURSE ---
Report called to Romel willams and report given to nurse Corina HAHN.
== END 2023-12-01 13:43 | disposition hospice, inpatient (51) ==
LOC: ER 23:38 → 2ND 12-01 00:02
PROVIDERS: Admitting Provider Internal Medicine Adolescent Medicine; Emergency Provider Emergency Medicine; PCP Family Medicine; Visit Provider Internal Medicine Adolescent Medicine
DX: T40.2X5A Adverse effect of other opioids, initial encounter (principal); S12.191A Other nondisplaced fracture of second cervical vertebra, initial encounter for closed fracture; R41.82 Altered mental status, unspecified; R40.0 Somnolence; R09.02 Hypoxemia; I50.9 Heart failure, unspecified; I11.0 Hypertensive heart disease with heart failure; F01.50 Vascular dementia, unspecified severity, without behavioral disturbance, psychotic disturbance, mood disturbance, and anxiety; Z79.899 Other long term (current) drug therapy; I25.2 Old myocardial infarction; R29.6 Repeated falls
CPT/HCPCS: 70450; 71045; 71275; 72125; 74177; 80048; 80053; 80307; 81001; 82803; 84484; 85025; 87077; 87086; 87088; 87186; 93005; 97163; 97166; 99291; G0378; J0131; J2270; J7120; J7620; Q9967